=== PATIENT | male | born 1945 | race Caucasian/White ===

== ENCOUNTER 2017-03-17 14:22 | Emergency (ER) | payer OTHER, MEDICARE ==
[~2017-03-17] VITALS: Ht 165.1 cm; Wt 72.0 kg
[~2017-03-17 14:22] MED LIST: ASPI81 PO; CENTTAB9 PO; COZA50TA PO; FISH1200 PO; METO50TA PO; MOBI7.5T PO; MULT1TAB PO; POTA-243 PO; SIMV20 PO; TAMS0.4C67 PO; TRAM50TA PO; VITA100017 PO
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
[2017-03-17 14:35] VITALS: BP 135/87; PULSE 87; RESP 17; TEMP 98.2; O2SAT 98
[2017-03-17 15:26] VITALS: BP 135/79; PULSE 54; RESP 16; O2SAT 95
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
[2017-03-17] MEDS ORDERED: SODIUM CHLORIDE 0.9% FLUSH 10 ML FLUSH IV FLUSH PRN (16:30)
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
[2017-03-17 17:15] LABS: AUTOMATED NEUTROPHIL # 5.8 TH/MM3 (1.8-7.7); BASOPHIL % 0.5 % (0.0-2.0); EOSINOPHIL % 0.5 % (0.0-4.0); HEMATOCRIT 44.6 % (39.0-51.0); HEMO FLAGS DIFF FINAL; LYMPHOCYTE # 0.8 TH/MM3 (1.0-4.8); MEAN CELL VOLUME 73.7 FL (80.0-100.0); MEAN CORPUSCULAR HEMOGLOBIN 23.9 PG (27.0-34.0); MEAN CORPUSCULAR HGB CONC 32.4 % (32.0-36.0); PLATELET COUNT 190 TH/MM3 (150-450); RED BLOOD COUNT 6.05 MIL/MM3 (4.50-5.90); RED CELL DISTRIBUTION WIDTH 18.5 % (11.6-17.2); WHITE BLOOD COUNT 7.4 TH/MM3 (4.0-11.0)
[2017-03-17 17:22] LABS: APTT (PATIENT) 25.8 SEC (24.3-30.1); PROTHROMBIN TIME - PATIENT 11.5 SEC (9.8-11.6)
[2017-03-17 17:31] LABS: ALT (GPT) 30 U/L (12-78); ANION GAP 7 MEQ/L (5-15); AST (GOT) 39 U/L (15-37); BICARBONATE 25.7 MEQ/L (21.0-32.0); BLOOD UREA NITROGEN 15 MG/DL (7-18); CHLORIDE 109 MEQ/L (98-107); GLOMERULAR FILTRATION RATE 60 ML/MIN (>89); POTASSIUM 3.7 MEQ/L (3.5-5.1); SODIUM (NA) 142 MEQ/L (136-145)
[2017-03-17 17:34] LABS: ALKALINE PHOSPHATASE 71 U/L (45-117); TOTAL BILIRUBIN ADULT 0.2 MG/DL (0.2-1.0)
[2017-03-17] MEDS ORDERED: ASPI81TA11 PO (17:59)
[2017-03-17] MEDS ORDERED: LOSA50TA PO (17:59)
[2017-03-17] MEDS ORDERED: FISH1200 PO (17:59)
[2017-03-17] MEDS ORDERED: MOBI7.5T PO (17:59)
[2017-03-17] MEDS ORDERED: ASPI325T PO (17:59)
[2017-03-17] MEDS ORDERED: ZOCO20TA PO (18:01)
[2017-03-17] MEDS ORDERED: MULT1TAB PO (18:01)
[2017-03-17] MEDS ORDERED: TAMS0.4C4 PO (18:01)
[2017-03-17] MEDS ORDERED: METO50TA PO (18:02)
[2017-03-17] MEDS ORDERED: POTA-243 PO (18:02)
[2017-03-17 18:56] VITALS: PULSE 78
[2017-03-17 19:03] VITALS: BP 138/70; PULSE 65; RESP 18; O2SAT 100
[2017-03-17 22:09] VITALS: BP 137/80; PULSE 57; RESP 18; O2SAT 100
--- NOTE | 2017-03-17 22:15 | RADRPT ---
EXAM DATE/TIME: 03/17/2017 21:05 [facility] COMPARISON: No previous studies available for comparison. INDICATIONS : Radiculopathy. Right lower extremity numbness and weakness. MEDICAL HISTORY: Hypertension. Myocardial infarction. Gastroesophageal reflux disease. Polycythe uri vera. BPH. SURGICAL HISTORY : Tonsillectomy. Hernia repair. Cardiac cath. ENCOUNTER: Subsequent ACUITY: 1 day PAIN SCORE: 3/10 LOCATION: Lower back. TECHNIQUE: Multiplanar multisequence MRI of the lumbar spine was performed without contrast. FINDINGS: The most caudal appearing lumbar vertebra is numbered as L5. VERTEBRAE: The lumbar vertebral bodies are grossly normal in height. There is a mixture of type I and type II endplate changes at the L1-L2, L2-L3, L3-L4, and L5-S1 levels. There are prominent ante rior osteophytes in the lower thoracic and upper and midlumbar spine. There does appear to be a dext rocurvature of the upper lumbar spine and a levocurvature of the lower lumbar spine. There is mild a nterior subluxation of L4 on L5 in the order of 5 mm. There is some minimal posterior subluxation of L2 on L3 and L3 on L4. CONUS: Normal level and configuration. T12-L1: Disc demonstrates decreased signal. A significant impression on the thecal sac is not seen. The neural foramina are normal. There is mild facet hypertrophy. L1-L2: Disc space is narrowed. There is diffuse disc bulge. This causes a mild impression on the a nterior aspect of the thecal sac. There is mild facet hypertrophy. The disc and facet changes are a symmetric and worse on the left. There is some narrowing of the left neural foramina. The right neur al foramina appears intact. L2-L3: Disc demonstrates decreased signal and decreased height. There is mild diffuse disc bulge. There is moderate facet hypertrophy. There is moderate narrowing of the thecal sac with minimal CSF seen around the nerve roots. There is narrowing of the neural foramina bilaterally. L3-L4: Disc demonstrates decreased signal and decreased height. There is mild diffuse disc bulge. There is moderate facet hypertrophy. These changes lead to moderate narrowing of the thecal sac with little CSF seen around the nerve roots. There is narrowing of the neural foramina bilaterally. L4-L5: Again noted is the anterior subluxation of L4 on L5, this is likely secondary to severe facet hypertrophy. Pars defects are not seen. The disc maintains its alignment with the superior aspect of L5 creating a bulge-like configuration. The disc configuration and facet hypertrophy lead to very severe stenosis. The thecal sac is narrowed to approximately 5 mm in AP dimension and 6 mm in transv erse dimension. There is narrowing of the neural foramina bilaterally being worse on the right. The disc bulge appears worse on the right. L5-S1: Disc demonstrates decreased signal and decreased height. There is mild diffuse disc bulge. T here is moderate facet hypertrophy being worse on the right. Overall these changes cause a mild impr ession on the thecal sac. There continues to be CSF around the nerve roots. There is narrowing of th e neural foramina bilaterally. CONCLUSION: 1. Degenerative changes throughout the lumbar spine. The most severely affected level is the L4-L5 l evel where there is severe stenosis. This is caused by anterior subluxation/Grade I spondylolisthesi s of L4 on L5, disc bulge configuration and severe facet hypertrophy. 2. Disc space narrowing and bulging throughout the lumbar spine. There is severe stenosis at the L4- L5 level and moderate narrowing at the L1-L2, L2-L3, and L3-L4 levels. 3. Neural foraminal narrowing throughout the lumbar spine as described above. Jaydon Kahn MD on March 17, 2017 at 21:50 Board Certified Radiologist. This report was verified electronically.
[2017-03-17] MEDS ORDERED: PRED20 PO (23:00)
[2017-03-17] MEDS ORDERED: predniSONE 20 MG TAB PO ONE (23:00)
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
== END 2017-03-17 23:21 | disposition home or self-care (01) ==
LOC: NEPC 14:22
DX: M54.16 Radiculopathy, lumbar region (principal); I10 Essential (primary) hypertension; I25.2 Old myocardial infarction; E11.9 Type 2 diabetes mellitus without complications; E78.00 Pure hypercholesterolemia, unspecified; Z79.82 Long term (current) use of aspirin; M51.36 Other intervertebral disc degeneration, lumbar region
CPT/HCPCS: 71010; 72148; 80053; 80307; 85025; 85610; 85730; 99285; J7512

== ENCOUNTER 2017-06-02 08:30 | Inpatient (IN) | payer MEDICARE ==
[~2017-06-02] VITALS: Ht 167.6 cm; Wt 66.5 kg
[~2017-06-02 08:30] MED LIST changes: -ASPI81 PO; +ASPI81CH CHEW; +ASPI81TA11 PO; -CENTTAB9 PO; -COZA50TA PO; +LOSA50TA PO; +METR0.7533 TOPICAL; +MIRA3350 PO; +MOME0.1O20 TOPICAL; +PRED20 PO; -SIMV20 PO; +TAMS0.4C4 PO; -TAMS0.4C67 PO; -TRAM50TA PO; -VITA100017 PO; +ZOCO20TA PO
[2017-06-15] MEDS ORDERED: METOPROLOL TARTRATE 25 MG TAB PO PRN (06:15)
[2017-06-15] MEDS ORDERED: INSULIN HUMAN REGULAR 1,000 UNITS/10 ML VIAL SQ PRN (06:15)
[2017-06-15] MEDS ORDERED: CHLORHEXIDINE GLUCONATE 2 % 1 PACK (2 CLOTHS) TOPICAL PRN (06:15)
[2017-06-15] MEDS ORDERED: SODIUM CHLORID 0.9% 500 ML IV PRN (06:15)
[2017-06-15] MEDS ORDERED: LACTATED RINGER'S 1000 ML IV PRN (06:15)
[2017-06-15] MEDS ORDERED: SODIUM CHLORIDE 0.9% INJ 100 ML ONE (06:36)
[2017-06-15] MEDS ORDERED: CLINDAMYCIN INJ 600 MG in SODIUM CHLORIDE 0.9% INJ 100 ML IV SCH (07:30)
[2017-06-15] MEDS ORDERED: GELFOAM SIZE 100 ONE (07:46)
[2017-06-15] MEDS ORDERED: THROMBIN (TOPICAL) 5,000 UNIT VIAL ONE (07:46)
[2017-06-15] MEDS ORDERED: GENTAMICIN SULFATE 80 MG/2 ML VIAL ONE (07:46)
[2017-06-15] MEDS ORDERED: LIDOCAINE 2%/EPINEPHrine PF 1:200,000 20ML SDV ONE (07:50)
[2017-06-15] MEDS ORDERED: ONDANSETRON HCL 4 MG/2 ML VIAL IV PUSH ONE (12:00)
[2017-06-15] MEDS ORDERED: PROPOFOL 200 MG/20 ML AMP IV ONE (12:00)
[2017-06-15] MEDS ORDERED: LIDOCAINE HCL 1% PF 5 ML AMPULE OTHER ONE (12:00)
[2017-06-15] MEDS ORDERED: PHENYLEPH/NS 1000 MCG/10 ML SYR IV ONE (12:00)
[2017-06-15] MEDS ORDERED: DEXAMETHASONE SOD PHOS 4 MG/ML VIAL IV ONE (12:00)
[2017-06-15] MEDS ORDERED: PHENYLEPHRINE HCL 10 MG/ML VIAL IV ONE (12:00)
[2017-06-15] MEDS ORDERED: ePHEDrine/NS 25 MG/5 ML SYR IV ONE (12:00)
[2017-06-15] MEDS ORDERED: ROCURONIUM INJ 50 MG/5 ML SYRINGE IV PUSH ONE (12:00)
[2017-06-15] MEDS ORDERED: LACTATED RINGER'S 1000 ML INJ 1,000 ML IV ONE (12:00)
[2017-06-15] MEDS ORDERED: DO NOT ADM ANY ANTICOAGULANT DRUGS PRN (13:08)
[2017-06-15] MEDS ORDERED: MORPHINE SULFATE 4 MG/ML INJ IV PUSH PRN (13:30)
[2017-06-15] MEDS ORDERED: NALOXONE HCL 0.4 MG/ML AMP IV PUSH PRN (13:30)
[2017-06-15] MEDS ORDERED: ACETAMINOPHEN/HYDROcodone 325 MG/5 MG TAB PO PRN (13:30)
[2017-06-15] MEDS ORDERED: HYDROmorphone HCL PF 1 MG/ML VIAL IV PUSH PRN (13:30)
[2017-06-15] MEDS ORDERED: ACETAMINOPHEN/HYDROcodone 325 MG/10 MG TAB PO PRN (13:30)
[2017-06-15] MEDS ORDERED: SODIUM CHLORIDE 0.9% FLUSH 5 ML FLUSH IVF PRN (13:30)
--- NOTE | 2017-06-15 13:48 | PD.OP ---
Operative Report Date of Surgery: Jun 15, 2017 Preoperative Diagnosis: (1) Cervical spinal stenosis (2) Cervical disc disease with myelopathy 1. Cervical spondylosis and degenerative disc disease 2. Cervical stenosis 3. Cervical myelopathy Postoperative Diagnosis: (1) Cervical spinal stenosis (2) Cervical disc disease with myelopathy 1. Cervical spondylosis and degenerative disc disease 2. Cervical stenosis 3. Cervical myelopathy Procedure: 1. C3, C4, C5, C6 laminoplasty, allograft bone, demineralized bone matrix, titanium plates and screws 2. Inferior C2 and superior C7 decompressive semi-laminectomy Anesthesia: Gen. Surgeon: Chiki Barker [id number] Application Developer(s): Aj Simon Operation and Findings: The patient was brought into the operating room and general endotracheal anesthesia induced without difficulty. Lines were established by anesthesia Knee high sequential compression devices were placed Appropriate timeout procedure was performed with all personnel present and in agreement The Fagan 3 point fixation device was placed. The patient was in a cervical collar for positioning Leads for intraoperative neuro monitoring were placed in a baseline study obtained The patient was turned into prone position on the 3080 table on the Vinicius frame with the undersigned maintaining control of the head and neck. The head and neck were secured to the operating room table with the Fagan adapter with the neck slightly flexed with 3-4 fingerbreadths between the chin and chest. The neck position was checked with intraoperative C-arm and felt to be satisfactory. The cervical collar was removed. All extremities were appropriately padded. The back of the head and neck were shaved with clippers and sterilely prepped and draped. 1% Xylocaine with epinephrine was used for local infiltration over the incision site was made in the midline posterior neck and carried sharply down to the spinous processes of . The microscope was used as needed during the decompression and graft and plate placement portion of the procedure. On the right side, the muscle attachments to the spinous process and the midline supraspinous ligament was left intact, and the Cash elevator was used to expose the junction of the lamina and facet at the bilateral C3-C6 levels. On the right side, the TPS drill with the M8 mercedez was used to incise a trough in the dorsal cortical bone at the C3-C6 levels. On the left side the posterior muscle attachments and fascia were incised with the Bovie and elevated away from the lamina and facet and spinous processes at the C3-C6 levels On the left side. The TPS drill with the M8 mercedez was used to drill a 10 trough through both the dorsal and ventral cortical bone at the junction of the lamina and facet. A thin remaining shell of bone at the ventral lamina was removed with the 1 and 2 mm Kerrison rongeur. The lamina square dance caller was then used to elevate the left lamina away from the facet , creating a partial fracture through the lamina on the right side. Next the precut laminoplasty grafts filled with demineralized bone matrix were placed at the C3 through C6 levels with the 10 mm grafts used at each level. Prior to placement of the laminoplasty graft and plate, the inferior ventral C2 and superior ventral C6 lamina were removed with the TPS drill and the Kerrison rongeur to further decompress the dura at these levels. The prepared iliac autografts were then placed between the elevated laminar edge and decorticated facet at the left C3-C6 levels, with the Synthes titanium laminoplasty plates pre- attached to the graft with 6 mm screws. The 4 through 6 mm screws were then used as needed to secure the laminoplasty plates to the edge of the lamina and through the facet and lateral mass at the left C3-C6 levels. The entire construct was checked with intraoperative C-arm and also visualized under the microscope. The thin ligament dissector and blunt hook were used to carefully probe beneath the elevated lamina to ensure adequate decompression of the thecal sac. Care was taken to make sure that the edge of the lamina on the right side was not depressed into the spinal canal. There appeared to be some dorsal compression of the thecal sac remaining at the inferior C2 and superior C7 levels. Using the TPS drill with the M8 mercedez, the inferior C2 and superior C7 lamina was thinned out, with the remaining decompressive semi-laminectomy at these levels performed with the 2 and 3 mm Kerrison rongeur. After this maneuver, the thecal sac appeared to be well decompressed from the C2 through C7 levels. The region was well irrigated with antibiotic irrigation. Bleeding was carefully controlled with bipolar forceps A 10 Syrian fluted drain was left at the operative site and brought out through an incision in the upper thoracic region and secured to the skin with nylon suture The closure was performed with 0 Vicryl interrupted for the deep and superficial fascia with 3-0 Vicryl interrupted subcutaneous closure and 4-0 Vicryl subcutaneous closure. A dressing of sterile Mastisol and Steri-Strips and a Primapore dressing was placed. The patient was placed back in a cervical collar and released from the Milton adapter and turned back into supine position on the recovery room bed. The Milton 3 point fixation device was then removed. The patient was taken to recovery room in stable condition All counts were correct at the end of the case. Estimated blood loss was 200 No specimen was sent to pathology Neural monitoring remained stable during the procedure Chiki Barker MD Jun 15, 2017 13:48
[2017-06-15] MEDS: D5-1/2 NS + KCL 20 MEQ INJ 1,000 ML IV SCH (14:00)
[2017-06-15 16:47] VITALS: BP 117/58; PULSE 58; RESP 20; TEMP 97.6; O2SAT 98
[2017-06-15 20:00] VITALS: BP 116/66; PULSE 66; RESP 18; TEMP 97.8; O2SAT 98
[2017-06-15] MEDS: SODIUM CHLORIDE 0.9% FLUSH 5 ML FLUSH IVF SCH (21:00)
--- NOTE | 2017-06-15 21:41 | RADRPT ---
EXAM DATE/TIME: 06/15/2017 10:01 [facility] COMPARISON: No previous studies available for comparison. INDICATIONS : Cervical spine C3-6 laminoplasty with plates and screws. OR. MEDICAL HISTORY : Hypertension. Myocardial infarction. Gastroesophageal reflux disease. Polycythemia vera. BPH. SURGICAL HISTORY : Tonsillectomy. Hernia repair. Cardiac cath. ENCOUNTER: Initial ACUITY: 1 day PAIN SCORE: Non-responsive. LOCATION: Cervical spine C3-6 FINDINGS: 3 spot fluoroscopic images obtained in the operating room during a procedure demonstrates plate and s crews on the left in the lamina region at C3-C6. CONCLUSION: Spot fluoroscopic images, as above. Jaydon Cline MD on June 15, 2017 at 21:38 Board Certified Radiologist. This report was verified electronically.
[2017-06-16] VITALS (9 sets, daily range): BP systolic 127–141; BP diastolic 63–79; PULSE 57–72; RESP 17–18; TEMP 97.4–99.3; O2SAT 95–100
[2017-06-16 09:01] LABS: AUTOMATED NEUTROPHIL # 5.6 TH/MM3 (1.8-7.7); BASOPHIL % 0.1 % (0.0-2.0); EOSINOPHIL % 0.2 % (0.0-4.0); HEMATOCRIT 40.8 % (39.0-51.0); HEMO FLAGS DIFF FINAL; LYMPH % 9.8 % (9.0-44.0); LYMPHOCYTE # 0.7 TH/MM3 (1.0-4.8); MEAN CELL VOLUME 78.4 FL (80.0-100.0); MEAN CORPUSCULAR HEMOGLOBIN 25.6 PG (27.0-34.0); MEAN CORPUSCULAR HGB CONC 32.6 % (32.0-36.0); NEUT % 77.9 % (16.0-70.0); PLATELET COUNT 165 TH/MM3 (150-450); RED BLOOD COUNT 5.21 MIL/MM3 (4.50-5.90); RED CELL DISTRIBUTION WIDTH 17.7 % (11.6-17.2); WHITE BLOOD COUNT 7.2 TH/MM3 (4.0-11.0)
--- NOTE | 2017-06-16 09:09 | RADRPT ---
EXAM DATE/TIME: 06/16/2017 08:30 [facility] COMPARISON: No previous studies available for comparison. INDICATIONS : Gait deficits. Evaluate for normal pressure hydrocephalus. Cervical fusion surgery yesterday. RADIATION DOSE: 56.39 CTDIvol (mGy) MEDICAL HISTORY : Cardiovascular disease. Hypertension. SURGICAL HISTORY : Fusion, cervical. Hernia repair. ENCOUNTER: Initial ACUITY: 1 day PAIN SCALE: 0/10 LOCATION: cranial TECHNIQUE: Multiple contiguous axial images were obtained of the head. Using automated exposure control and adj ustment of the mA and/or kV according to patient size, radiation dose was kept as low as reasonably a chievable to obtain optimal diagnostic quality images. DICOM format image data is available electro nically for review and comparison. FINDINGS: There are no fractures. Ventricles and cisterns are of normal size and configuration. There are no si gns of acute infarct, intracranial hemorrhage, or mass. CONCLUSION: No acute disease. Samson Tavarez MD on June 16, 2017 at 9:07 Board Certified Radiologist. This report was verified electronically.
[2017-06-16] MEDS: D5-1/2 NS + KCL 20 MEQ INJ 1,000 ML IV SCH (09:25)
[2017-06-16] MEDS: SODIUM CHLORIDE 0.9% FLUSH 5 ML FLUSH IVF SCH ×2 (09:25→21:00)
[2017-06-16 09:37] LABS: BICARBONATE 26.2 MEQ/L (21.0-32.0); POTASSIUM 4.3 MEQ/L (3.5-5.1)
--- NOTE | 2017-06-16 10:45 | PD.WCN.NOT ---
Wound Consult Description: Received consult for pressure ulcer to sacral area from Doctor Barker Communicated with: RN Kathryn sanabria and Call placed to Doctor Barker for orders Recommendation: Please cleanse buttock and sacral area with soap and water and pat dry. Apply Calazime barrier cream BID and PRN and leave open to air. Ok to not remove all barrier cream from skin after cleaning patient. Please do not scrub barrier cream off skin OK to layer barrier cream on patient. Cleanse Hemorrhoid with normal saline gently and pat dry. Please use mesh underwear with pad for drainage and change as needed. Please keep patient turned every 2 hours and PRN for comfort Additional Information: Patient seen on for evaluation of sacral pressure ulcer.Repositioned patient with minimal assist to L side. Patient is noted with sacral blanchable erythema and large hemorrhoid to perianal area. Hemorrhoid measures ~5cm x ~ 4cm. Hemorrhoid has minimal sero-sanguinous drainage without odor.Cleansed hemorrhoid with normal saline and left open to air. Placed ultra sorb pad underneath patient for incontinence and drainage management. Moisture barrier cream applied to sacral and bilateral buttock areas.Positioned patient off bottom with pillows for support. Angela Dooley [facility] Jun 16, 2017 10:45
--- NOTE | 2017-06-16 17:42 | HHI.NSPN ---
(Merrill Godfrey) History Chief Complaint: Neck pain (Merrill Godfrey) Interval History 06/15: The patient presented to [facility] to undergo a C3 to C6 laminoplasty with a C2 and C7 decompressive laminectomy. Post-operatively the patient was admitted to a regular med/surg floor. 06/16: The patient states that he is not doing so good when seen this afternoon. He complains of pain to the neck and back and across the upper shoulders. He states that he did have some shortness of breath when he got up and ambulate with Physical Therapy. Nursing reported that the patient did have some drainage earlier at the ELIJAH drain insertion site and that they have just reinforced the dressing. His Cedillo catheter has been taken out and he is voiding on his own but he does report pain with urination. The patient did have a CT brain this morning which was unremarkable. (Merrill Godfrey) System Review Comments Constitutional: Patient denies fever or chills. HEENT: Patient denies any visual or hearing difficulty. Respiratory: Patient had shortness of breath when ambulating with Physical Therapy which subsided when he got back in bed. He denies any productive cough. Cardiovascular: Patient denies any chest pain, palpitations or irregular heartbeat. Gastrointestinal: Patient denies any abdominal pain, nausea, vomiting or incontinence of stool. Genitourinary: Patient complains of pain with urination. Musculoskeletal: Patient complains of neck and upper back pain that goes across the shoulders. He also has pain to the lower back. Neurologic: Patient with chronic numbness from the ankles to the toes bilaterally without any change. He denies any headache or dizziness. (Merrill Godfrey) Exam Results 06/14/17 06/14/17 06/15/17 06/15/17 06/16/17 06/16/17 06:00 18:00 06:00 18:00 06:00 18:00 Intake Total 1574 ml 1170 ml Output Total 760 ml 545 ml 650 ml Balance 814 ml -545 ml 520 ml Intake Oral 0 ml 240 ml IV Total 174 ml 930 ml Other 1400 ml Output Urine Total 550 ml 500 ml 650 ml Drainage Total 10 ml 45 ml Estimated Blood Loss 200 ml Vital Signs Date Time Temp Pulse Resp B/P (MAP) Pulse Ox O2 Delivery O2 Flow Rate FiO2 06/16/17 15:57 98.8 72 18 129/66 (87) 95 06/16/17 12:12 98.4 70 18 135/63 (87) 98 06/16/17 09:20 Nasal Cannula 2.00 06/16/17 08:55 98 Nasal Cannula 2.00 06/16/17 08:22 98.1 68 18 137/67 (90) 99 06/16/17 04:00 98.1 63 18 141/79 (99) 99 06/16/17 03:07 100 Nasal Cannula 2.00 06/16/17 00:00 97.4 66 18 132/67 (88) 98 06/15/17 20:00 97.8 66 18 116/66 (83) 98 06/15/17 16:47 97.6 58 20 117/58 (77) 98 06/15/17 15:05 Nasal Cannula 2.00 06/15/17 14:45 98.1 60 13 110/63 (79) 98 Nasal Cannula 3 06/15/17 14:30 55 12 107/61 (76) 98 Nasal Cannula 3 06/15/17 14:15 59 16 103/64 (77) 98 Nasal Cannula 3 06/15/17 14:00 57 12 107/62 (77) 99 Nasal Cannula 3 06/15/17 13:45 57 12 110/62 (78) 99 Nasal Cannula 3 06/15/17 13:30 58 12 112/63 (79) 99 Nasal Cannula 3 06/15/17 13:15 55 12 114/63 (80) 100 Simple Mask 5 06/15/17 13:05 98.2 57 12 108/60 (76) 100 Simple Mask 5 06/15/17 06:47 98.1 53 16 127/80 (96) 97 Vital Signs Date Time Temp Pulse Resp B/P (MAP) Pulse Ox O2 Delivery O2 Flow Rate FiO2 06/16/17 15:57 98.8 72 18 129/66 (87) 95 06/16/17 09:20 Nasal Cannula 2.00 Intake and Output 06/16/17 06/16/17 06/17/17 08:00 16:00 00:00 Intake Total 1170 ml Output Total 600 ml 550 ml Balance -600 ml 620 ml (Merrill Godfrey) Physical Examination GENERAL: Asleep but awakens to voice, after that awake and readily interacts. No distress evident. His affect is normal. SKIN: Warm, dry & intact except for surgical incisions to neck & upper back, dressings intact w/o any shadowing noted, w/o any erythema or streaking, w/o any evident rashes, ulcerations or other lesions. NECK: [place] J cervical collar in place, intact dressing to surgical incision TTP , ELIJAH drain to bulb suction w/sanguinous drainage, no JVD, trachea midline. HEENT: Normocephalic, atraumatic. RESPIRATORY: CTAB w/o W/R/R, equal excursion, nonlaboured, on NC. CARDIOVASCULAR: S1S2 w/RRR w/o M/G/R, radial & pedal pulses 2+ bilaterally, cap refill < 2 sec, no pedal edema. GASTROINTESTINAL: Abdomen soft, nontender, positive bowel sounds. MUSCULOSKELETAL: SAVAGE spontaneously, no evident deformity or clubbing. Surgical incisions to upper back TTP and across proximal shoulders. Lower back TTP. Extremities NTTP NEUROLOGICAL: AAOx3. Speech clear & appropriate. Follows simple commands well. Sensation intact to light touch to all extremities except decreased below the ankles bilaterally. Motor strength 5/5 to all major flexion & extension muscle groups. (Merrill Godfrey) Lab, Micro, Other Results Recent Impressions Head CT 06/16/17 0600 Signed Impressions: Service Date/Time: Friday, June 16, 2017 08:30 - CONCLUSION: No acute disease. Samson Tavarez MD Cervical Spine X-Ray 06/15/17 0000 Signed Impressions: Service Date/Time: Thursday, June 15, 2017 10:01 - CONCLUSION: Spot fluoroscopic images, as above. Jaydon Cline MD Laboratory Tests Test 06/16/17 08:23 White Blood Count 7.2 TH/MM3 Red Blood Count 5.21 MIL/MM3 Hemoglobin 13.3 GM/DL Hematocrit 40.8 % Mean Corpuscular Volume 78.4 FL Mean Corpuscular Hemoglobin 25.6 PG Mean Corpuscular Hemoglobin Concent 32.6 % Red Cell Distribution Width 17.7 % Platelet Count 165 TH/MM3 Mean Platelet Volume 8.4 FL Neutrophils (%) (Auto) 77.9 % Lymphocytes (%) (Auto) 9.8 % Monocytes (%) (Auto) 12.0 % Eosinophils (%) (Auto) 0.2 % Basophils (%) (Auto) 0.1 % Neutrophils # (Auto) 5.6 TH/MM3 Lymphocytes # (Auto) 0.7 TH/MM3 Monocytes # (Auto) 0.9 TH/MM3 Eosinophils # (Auto) 0.0 TH/MM3 Basophils # (Auto) 0.0 TH/MM3 CBC Comment DIFF FINAL Differential Comment Blood Urea Nitrogen 12 MG/DL Creatinine 1.14 MG/DL Random Glucose 107 MG/DL Calcium Level 8.5 MG/DL Sodium Level 138 MEQ/L Potassium Level 4.3 MEQ/L Chloride Level 105 MEQ/L Carbon Dioxide Level 26.2 MEQ/L Anion Gap 7 MEQ/L Estimat Glomerular Filtration Rate 63 ML/MIN (Merrill Godfrey) Medical Decision Making Impression and Plan Impression: (1) Cervical spinal stenosis (2) Cervical disc disease with myelopathy 1. Cervical spondylosis and degenerative disc disease 2. Cervical stenosis 3. Cervical myelopathy Patient doing well overall but does have pain across the shoulders since surgery. Motor strength is good, no change in numbness to feet. POD #1 () s/p: 1. C3, C4, C5, C6 laminoplasty, allograft bone, demineralized bone matrix, titanium plates and screws 2. Inferior C2 and superior C7 decompressive semi-laminectomy Plan: Neuro checks. Mobilise patient w/assistance. [place] J cervical collar at all times. PT eval & tx. Monitor ELIJAH drain output. (Merrill Godfrey) Attending Statement The exam, history, and the medical decision-making described in the above note were completed with the assistance of the mid-level provider. I reviewed and agree with the findings presented. I attest that I had a [id number] encounter with the patient on the same day, and personally performed and documented my assessment and findings in the medical record. Post op pain over neck and shoulders. Neuro exam stable post op. Add toradol and robaxin for pain and spasm Drain out in AM (Chiki Barker MD) Merrill Godfrey Jun 16, 2017 17:42 Chiki Barker MD Jun 16, 2017 21:41
[2017-06-16] MEDS ORDERED: METHOCARBAMOL 500 MG TAB PO PRN (21:45)
[2017-06-16] MEDS ORDERED: METHOCARBAMOL 500 MG TAB PO ONE (21:45)
[2017-06-16] MEDS: KETOROLAC TROMETHAMINE 30 MG/ML (IVP) VIAL IV PUSH SCH (22:43)
[2017-06-16 22:48] LABS: BLOOD, URINE SMALL (NEG); COMMENT (UR) CULT NOT INDICATED; CULTURE IF INDICATED CULT NOT INDICATED; GLUCOSE,URINE NEG (NEG); KETONE, URINE TRACE mg/dL (NEG); NITRITE,URINE NEG (NEG); PH, URINE 5.5 (5.0-8.5); URINE COLOR LIGHT-YELLOW (YELLW/STRAW)
[2017-06-17] VITALS (7 sets, daily range): BP systolic 122–141; BP diastolic 60–79; PULSE 60–82; RESP 17–20; TEMP 98–99.6; O2SAT 93–97
[2017-06-17] MEDS: TAMSULOSIN HCL 0.4 MG CAP PO SCH ×2 (00:46→22:07)
[2017-06-17] MEDS: D5-1/2 NS + KCL 20 MEQ INJ 1,000 ML IV SCH ×3 (00:46→14:57)
[2017-06-17] MEDS: KETOROLAC TROMETHAMINE 30 MG/ML (IVP) VIAL IV PUSH SCH ×3 (06:17→22:09)
[2017-06-17] MEDS: LOSARTAN 50 MG TAB PO SCH ×2 (08:18→22:07)
[2017-06-17] MEDS: METOPROLOL TARTRATE 50 MG TAB PO SCH ×2 (08:18→22:07)
[2017-06-17] MEDS: POTASSIUM CHLORIDE 10 MEQ CONTROLLED RELEASE TAB PO SCH (08:18)
[2017-06-17] MEDS: SODIUM CHLORIDE 0.9% FLUSH 5 ML FLUSH IVF SCH ×2 (08:22→21:00)
[2017-06-17] MEDS: POLYETHYLENE GLYCOL 17 GM PKG PO SCH (08:22)
--- NOTE | 2017-06-17 11:51 | HHI.NSPN ---
(Merrill Godfrey) History Chief Complaint: Neck pain, but better (Merrill Godfrey) Interval History 06/15: The patient presented to [facility] to undergo a C3 to C6 laminoplasty with a C2 and C7 decompressive laminectomy. Post-operatively the patient was admitted to a regular med/surg floor. 06/16: The patient states that he is not doing so good when seen this afternoon. He complains of pain to the neck and back and across the upper shoulders. He states that he did have some shortness of breath when he got up and ambulate with Physical Therapy. Nursing reported that the patient did have some drainage earlier at the ELIJAH drain insertion site and that they have just reinforced the dressing. His Cedillo catheter has been taken out and he is voiding on his own but he does report pain with urination. The patient did have a CT brain this morning which was unremarkable. 06/17: This morning the patient is awake and visiting with his . He states that he is doing better than yesterday and is pain is less. He also states that his difficulty urinating yesterday has resolved with his being able to stand. Lisa Simental RN, [place] buyer liaison, met with the patient this morning. She is going to request authorisation for the patient to go to [place] at discharge for further therapy and requested that an Occupational Therapy consult be placed. (Merrill Godfrey) System Review Comments Constitutional: Patient denies fever or chills. HEENT: Patient denies any visual or hearing difficulty. Respiratory: Patient denies any shortness of breath or productive cough. Cardiovascular: Patient denies any chest pain, palpitations or irregular heartbeat. Gastrointestinal: Patient denies any abdominal pain, nausea, vomiting or incontinence of stool. Genitourinary: Patient states that he is urinating better when he stands up. Musculoskeletal: Patient has pain to the neck and upper back which is better today. He also has pain to the lower back. He denies any extremity pain. Neurologic: Patient with chronic numbness from the ankles to the toes bilaterally without any change. He denies any headache or dizziness. (Merrill Godfrey) Exam Results 06/15/17 06/15/17 06/16/17 06/16/17 06/17/17 06/17/17 05:59 17:59 05:59 17:59 05:59 17:59 Intake Total 1574 ml 1545 ml 1058 ml Output Total 760 ml 545 ml 950 ml 515 ml 5 ml Balance 814 ml -545 ml 595 ml 543 ml -5 ml Intake Oral 0 ml 240 ml 480 ml IV Total 174 ml 1305 ml 578 ml Other 1400 ml Output Urine Total 550 ml 500 ml 950 ml 450 ml Drainage Total 10 ml 45 ml 65 ml 5 ml Estimated Blood Loss 200 ml Bladder Scan Volume Amount 0 ml 622 ml # Voids 2 Vital Signs Date Time Temp Pulse Resp B/P (MAP) Pulse Ox O2 Delivery O2 Flow Rate FiO2 06/17/17 08:18 98.0 71 18 122/75 (91) 96 06/17/17 08:02 93 21 06/17/17 08:00 Nasal Cannula 2.00 06/17/17 05:30 98.1 69 17 128/74 (92) 94 06/17/17 00:46 99.6 72 17 133/79 (97) 96 06/16/17 21:27 95 Nasal Cannula 2.00 06/16/17 21:18 99.3 57 17 127/74 (91) 95 06/16/17 19:55 Nasal Cannula 2.00 06/16/17 15:57 98.8 72 18 129/66 (87) 95 06/16/17 12:12 98.4 70 18 135/63 (87) 98 06/16/17 09:20 Nasal Cannula 2.00 06/16/17 08:55 98 Nasal Cannula 2.00 06/16/17 08:22 98.1 68 18 137/67 (90) 99 06/16/17 04:00 98.1 63 18 141/79 (99) 99 06/16/17 03:07 100 Nasal Cannula 2.00 06/16/17 00:00 97.4 66 18 132/67 (88) 98 06/15/17 20:00 97.8 66 18 116/66 (83) 98 06/15/17 16:47 97.6 58 20 117/58 (77) 98 06/15/17 15:05 Nasal Cannula 2.00 06/15/17 14:45 98.1 60 13 110/63 (79) 98 Nasal Cannula 3 06/15/17 14:30 55 12 107/61 (76) 98 Nasal Cannula 3 06/15/17 14:15 59 16 103/64 (77) 98 Nasal Cannula 3 06/15/17 14:00 57 12 107/62 (77) 99 Nasal Cannula 3 06/15/17 13:45 57 12 110/62 (78) 99 Nasal Cannula 3 06/15/17 13:30 58 12 112/63 (79) 99 Nasal Cannula 3 06/15/17 13:15 55 12 114/63 (80) 100 Simple Mask 5 06/15/17 13:05 98.2 57 12 108/60 (76) 100 Simple Mask 5 06/15/17 06:47 98.1 53 16 127/80 (96) 97 (Merrill Godfrey) Physical Examination GENERAL: Awake & alert. Readily interacts. No distress evident. His affect is normal. SKIN: Warm, dry & intact except for surgical incisions to neck & upper back, dressings intact w/o any shadowing noted, w/o any erythema or streaking, w/o any evident rashes, ulcerations or other lesions. NECK: [place] J cervical collar in place, intact dressing to surgical incision TTP , ELIJAH drain to bulb suction w/sanguinous drainage, no JVD, trachea midline. HEENT: Normocephalic, atraumatic. RESPIRATORY: CTAB w/o W/R/R, equal excursion, nonlaboured, on NC. CARDIOVASCULAR: S1S2 w/RRR w/o M/G/R, radial & pedal pulses 2+ bilaterally, cap refill < 2 sec, no pedal edema. GASTROINTESTINAL: Abdomen soft, nontender, positive bowel sounds. MUSCULOSKELETAL: SAVAGE spontaneously, no evident deformity or clubbing. Surgical incisions to upper back mildly TTP. Lower back mildly TTP. Extremities NTTP NEUROLOGICAL: AAOx3. Speech clear & appropriate. Follows simple commands well. Sensation intact to light touch to all extremities except decreased below the ankles bilaterally. Motor strength 5/5 to all major flexion & extension muscle groups. (Merrill Godfrey) Lab, Micro, Other Results Recent Impressions Head CT 06/16/17 0600 Signed Impressions: Service Date/Time: Friday, June 16, 2017 08:30 - CONCLUSION: No acute disease. Samson Tavarez MD Cervical Spine X-Ray 06/15/17 0000 Signed Impressions: Service Date/Time: Thursday, June 15, 2017 10:01 - CONCLUSION: Spot fluoroscopic images, as above. Jaydon Cline MD Laboratory Tests Test 06/16/17 08:23 06/16/17 22:15 White Blood Count 7.2 TH/MM3 Red Blood Count 5.21 MIL/MM3 Hemoglobin 13.3 GM/DL Hematocrit 40.8 % Mean Corpuscular Volume 78.4 FL Mean Corpuscular Hemoglobin 25.6 PG Mean Corpuscular Hemoglobin Concent 32.6 % Red Cell Distribution Width 17.7 % Platelet Count 165 TH/MM3 Mean Platelet Volume 8.4 FL Neutrophils (%) (Auto) 77.9 % Lymphocytes (%) (Auto) 9.8 % Monocytes (%) (Auto) 12.0 % Eosinophils (%) (Auto) 0.2 % Basophils (%) (Auto) 0.1 % Neutrophils # (Auto) 5.6 TH/MM3 Lymphocytes # (Auto) 0.7 TH/MM3 Monocytes # (Auto) 0.9 TH/MM3 Eosinophils # (Auto) 0.0 TH/MM3 Basophils # (Auto) 0.0 TH/MM3 CBC Comment DIFF FINAL Differential Comment Blood Urea Nitrogen 12 MG/DL Creatinine 1.14 MG/DL Random Glucose 107 MG/DL Calcium Level 8.5 MG/DL Sodium Level 138 MEQ/L Potassium Level 4.3 MEQ/L Chloride Level 105 MEQ/L Carbon Dioxide Level 26.2 MEQ/L Anion Gap 7 MEQ/L Estimat Glomerular Filtration Rate 63 ML/MIN Urine Color LIGHT-YELLOW Urine Turbidity CLEAR Urine pH 5.5 Urine Specific [place] 1.007 Urine Protein NEG mg/dL Urine Glucose (UA) NEG mg/dL Urine Ketones TRACE mg/dL Urine Occult Blood SMALL Urine Nitrite NEG Urine Bilirubin NEG Urine Urobilinogen LESS THAN 2.0 MG/DL Urine Leukocyte Esterase NEG Urine RBC 9 /hpf Urine WBC 1 /hpf Microscopic Urinalysis Comment CULT NOT INDICATED (Merrill Godfrey) Medical Decision Making Impression and Plan Impression: (1) Cervical spinal stenosis (2) Cervical disc disease with myelopathy 1. Cervical spondylosis and degenerative disc disease 2. Cervical stenosis 3. Cervical myelopathy Patient continues to do well, his pain is better today. Neurologically stable. POD #2 () s/p: 1. C3, C4, C5, C6 laminoplasty, allograft bone, demineralized bone matrix, titanium plates and screws 2. Inferior C2 and superior C7 decompressive semi-laminectomy Plan: Neuro checks. Mobilise patient w/assistance. [place] J cervical collar at all times. PT eval & tx. Monitor ELIJAH drain output. [facility] once insurance approval is obtained. (Merrill Godfrey) Attending Statement The exam, history, and the medical decision-making described in the above note were completed with the assistance of the mid-level provider. I reviewed and agree with the findings presented. I attest that I had a [id number] encounter with the patient on the same day, and personally performed and documented my assessment and findings in the medical record. (Chiki Barker MD) Merrill Godfrey Jun 17, 2017 11:51 Chiki Barker MD Jun 29, 2017 05:19
[2017-06-17] MEDS ORDERED: METH500T3 PO (14:39)
[2017-06-17] MEDS ORDERED: HYDR-3583 PO (14:39)
--- NOTE | 2017-06-17 14:40 | HHI.DCPOC ---
Discharge Care Plan Diagnosis: (1) Cervical spinal stenosis (2) Cervical disc disease with myelopathy (3) Lumbar radiculopathy, acute Your Health Problems Are: Incision/Drains Exercise Tolerance Goals to Promote Your Health * To prevent worsening of your condition and complications * To maintain your health at the optimal level Leave the dressing on over the surgical incisions until . After that you may take the outer dressing off but leave the steri-strips on and let them fall off on their own. No showering until the surgical incision is totally healed. No lifting, bending, pushing, pulling or other strenuous activity. Wear the LSO brace when out of bed. Take the pain medication as prescribed. Avoid taking any medication that contains aspirin or NSAIDs (ibuprofen, naproxen , Motrin, Advil, Naprosyn). Follow up in the office in 2 weeks for a wound check. Directions to Meet Your Goals Take your medications as prescribed Follow your dietary instruction Follow activity as directed Leave the dressing on over the surgical incisions until . After that you may take the outer dressing off but leave the steri-strips on and let them fall off on their own. No showering until the surgical incision is totally healed. No lifting, bending, pushing, pulling or other strenuous activity. Wear the LSO brace when out of bed. Take the pain medication as prescribed. Avoid taking any medication that contains aspirin or NSAIDs (ibuprofen, naproxen , Motrin, Advil, Naprosyn). Follow up in the office in 2 weeks for a wound check. Keep your appointments as scheduled Take your immunizations and boosters as scheduled If your symptoms worsen call your PCP, if no PCP go to Urgent Care Center or Emergency Room Smoking is Dangerous to Your Health. Avoid second hand smoke Call the 24-hour hour crisis hotline for domestic abuse at Merrill Godfrey Jun 17, 2017 14:40 Chiki Barker MD Jun 29, 2017 05:18
--- NOTE | 2017-06-17 14:47 | HHI.DS ---
Merrill Godfrey HAND SCREEN PRINTER 06/17/17 1447: Discharge Summary Admission Date Jun 15, 2017 at 05:40 Discharge Date: Jun 18, 2017 Admitting Diagnosis (1) Cervical disc disease with myelopathy Diagnosis: Principal ICD Code: M50.00 - Cervical disc disorder with myelopathy, unspecified cervical region (2) Cervical spinal stenosis Diagnosis: Secondary ICD Code: M48.02 - Spinal stenosis, cervical region (3) Lumbar radiculopathy, acute Diagnosis: Secondary ICD Code: M54.16 - Radiculopathy, lumbar region Status: Acute Procedures : 1. C3, C4, C5, C6 laminoplasty, allograft bone, demineralized bone matrix, titanium plates and screws 2. Inferior C2 and superior C7 decompressive semi-laminectomy CBC/BMP: 06/16/17 0823 06/16/17 0823 Significant Findings Laboratory Tests Test 06/16/17 08:23 06/16/17 22:15 Mean Corpuscular Volume 78.4 FL (80.0-100.0) Mean Corpuscular Hemoglobin 25.6 PG (27.0-34.0) Red Cell Distribution Width 17.7 % (11.6-17.2) Neutrophils (%) (Auto) 77.9 % (16.0-70.0) Monocytes (%) (Auto) 12.0 % (0.0-8.0) Lymphocytes # (Auto) 0.7 TH/MM3 (1.0-4.8) Random Glucose 107 MG/DL (74-106) Estimat Glomerular Filtration Rate 63 ML/MIN (>89) Urine Ketones TRACE mg/dL (NEG) Urine Occult Blood SMALL (NEG) Urine RBC 9 /hpf (0-3) Hospital Course 06/15: The patient presented to [facility] to undergo a C3 to C6 laminoplasty with a C2 and C7 decompressive laminectomy. Post-operatively the patient was admitted to a regular med/surg floor. 06/16: The patient states that he is not doing so good when seen this afternoon. He complains of pain to the neck and back and across the upper shoulders. He states that he did have some shortness of breath when he got up and ambulate with Physical Therapy. Nursing reported that the patient did have some drainage earlier at the ELIJAH drain insertion site and that they have just reinforced the dressing. His Cedillo catheter has been taken out and he is voiding on his own but he does report pain with urination. The patient did have a CT brain this morning which was unremarkable. 06/17: This morning the patient is awake and visiting with his . He states that he is doing better than yesterday and is pain is less. He also states that his difficulty urinating yesterday has resolved with his being able to stand. Lisa Simental RN, [place] machine molder, met with the patient this morning. She is going to request authorisation for the patient to go to [place] at discharge for further therapy and requested that an Occupational Therapy consult be placed. Pt Condition on Discharge: Good Discharge Disposition: Discharge to SNF Discharge Instructions DIET: Follow Instructions for: As Tolerated, No Restrictions ACTIVITIES You can perform: Weight Bearing As Charu Activities to Avoid: Lifting/Bending, Strenuous Activity, Bathing, Shower ADDITIONAL Activity Instructio: No showering until the surgical incision is totally healed. No lifting, bending, pushing, pulling or other strenuous activity. Wear the LSO brace when out of bed. Additional Information Leave the dressing on over the surgical incisions until . After that you may take the outer dressing off but leave the steri-strips on and let them fall off on their own. No showering until the surgical incision is totally healed. Take the pain medication as prescribed. Avoid taking any medication that contains aspirin or NSAIDs (ibuprofen, naproxen , Motrin, Advil, Naprosyn). Follow up in the office in 2 weeks for a wound check. Chiki Barker MD 06/29/17 0520: Discharge Summary CBC/BMP: 06/16/17 0823 06/16/17822 Attending Statement The exam, history, and the medical decision-making described in the above note were completed with the assistance of the mid-level provider. I reviewed and agree with the findings presented. I attest that I had a [id number] encounter with the patient on the same day, and personally performed and documented my assessment and findings in the medical record. Merrill Godfrey Jun 17, 2017 14:47 Chiki Barker MD Jun 29, 2017 05:20
[2017-06-17] MEDS ORDERED: MULTIVITAMINS/MINERALS THERAPEUTIC TAB PO SCH (21:00)
[2017-06-18] VITALS: BP 137/81; PULSE 62; RESP 20; TEMP 98.4; O2SAT 96
[2017-06-18] MEDS: D5-1/2 NS + KCL 20 MEQ INJ 1,000 ML IV SCH ×2 (01:26→11:17)
[2017-06-18 04:00] VITALS: BP 132/71; PULSE 59; RESP 20; TEMP 99; O2SAT 95
[2017-06-18] MEDS: KETOROLAC TROMETHAMINE 30 MG/ML (IVP) VIAL IV PUSH SCH (06:31)
[2017-06-18 08:00] VITALS: BP 136/75; PULSE 70; RESP 20; TEMP 98.2; O2SAT 96
[2017-06-18 08:35] VITALS: O2SAT 95
[2017-06-18] MEDS: LOSARTAN 50 MG TAB PO SCH (09:16)
[2017-06-18] MEDS: METOPROLOL TARTRATE 50 MG TAB PO SCH (09:16)
[2017-06-18] MEDS: POTASSIUM CHLORIDE 10 MEQ CONTROLLED RELEASE TAB PO SCH (09:16)
[2017-06-18] MEDS: POLYETHYLENE GLYCOL 17 GM PKG PO SCH (09:17)
[2017-06-18] MEDS: SODIUM CHLORIDE 0.9% FLUSH 5 ML FLUSH IVF SCH (09:17)
--- NOTE | 2017-06-18 09:55 | HHI.NSPN ---
History Chief Complaint: Neck pain, but better Interval History 06/15: The patient presented to [facility] to undergo a C3 to C6 laminoplasty with a C2 and C7 decompressive laminectomy. Post-operatively the patient was admitted to a regular med/surg floor. 06/16: The patient states that he is not doing so good when seen this afternoon. He complains of pain to the neck and back and across the upper shoulders. He states that he did have some shortness of breath when he got up and ambulate with Physical Therapy. Nursing reported that the patient did have some drainage earlier at the ELIJAH drain insertion site and that they have just reinforced the dressing. His Cedillo catheter has been taken out and he is voiding on his own but he does report pain with urination. The patient did have a CT brain this morning which was unremarkable. 06/17: This morning the patient is awake and visiting with his . He states that he is doing better than yesterday and is pain is less. He also states that his difficulty urinating yesterday has resolved with his being able to stand. Lisa Simental RN, [place] pullboat engineer, met with the patient this morning. She is going to request authorisation for the patient to go to [place] at discharge for further therapy and requested that an Occupational Therapy consult be placed. 06/18: Pt awake and alert. Incisional discomfort improving. Pt states trying not to take pain medication secondary to constipation side effects. No radiculopathy in UEs. Paresthesias in Toes. Review of Systems General: Negative for: fever, chills, insomnia Respiratory: Negative for: shortness of breath, cough, sputum Cardiovascular: Negative for: chest pain Gastrointestinal: Negative for: nausea, vomitting, diarrhea, constipation Exam Results Vital Signs Date Time Temp Pulse Resp B/P (MAP) Pulse Ox O2 Delivery O2 Flow Rate FiO2 06/18/17 08:00 98.2 70 20 136/75 (95) 96 06/18/17 05:37 Room Air 06/17/17 08:02 21 06/17/17 08:00 2.00 Physical Examination Resp: CTA bilaterally. Heart: NSR no murmurs Abd: Soft positive bs Skin: Incision clean and dry. ELIJAH drain in place. Muscle: Moves all 4 extremities well. Cervical collar in place. Generalized weakness. Neuro: Pt awake and alert. Follows commands well. Speech clear and appropriate. Lab, Micro, Other Results Last Impressions Head CT 06/16/17 0600 Signed Impressions: Service Date/Time: Friday, June 16, 2017 08:30 - CONCLUSION: No acute disease. Samson Tavarez MD Cervical Spine X-Ray 06/15/17 0000 Signed Impressions: Service Date/Time: Thursday, June 15, 2017 10:01 - CONCLUSION: Spot fluoroscopic images, as above. Jaydon Cline MD Medical Decision Making Impression and Plan A: 72 y/o M with (1) Cervical spinal stenosis (2) Cervical disc disease with myelopathy 1. Cervical spondylosis and degenerative disc disease 2. Cervical stenosis 3. Cervical myelopathy POD #3 () s/p: 1. C3, C4, C5, C6 laminoplasty, allograft bone, demineralized bone matrix, titanium plates and screws 2. Inferior C2 and superior C7 decompressive semi-laminectomy Plan: Neuro checks. PT increase mobility [place] J cervical collar at all times. D/C ELIJAH drain. Plan for discharge to [facility] once insurance approval is obtained. Sen Daley Jun 18, 2017 9:55 am
[2017-06-25] MEDS ORDERED: [UNRECOGNIZED DRUG - OTHER] (12:26)
== END 2017-06-18 12:40 | DRG 519 ==
LOC: HSDI 06-15 05:40 → N05A 06-15 15:12
PROVIDERS: ADMIT Neurological Surgery; ATTEND Neurological Surgery
PROC: 0PH304Z Insertion of Internal Fixation Device into Cervical Vertebra, Open Approach (ICD-10-PCS; 2017-06-15)
PROC: 0PU30KZ Supplement Cervical Vertebra with Nonautologous Tissue Substitute, Open Approach (ICD-10-PCS; 2017-06-15)
PROC: 00NW0ZZ Release Cervical Spinal Cord, Open Approach (ICD-10-PCS; principal; 2017-06-15 08:13)
DX: M48.02 Spinal stenosis, cervical region (principal); M47.12 Other spondylosis with myelopathy, cervical region; E11.42 Type 2 diabetes mellitus with diabetic polyneuropathy; D75.1 Secondary polycythemia; M50.01 Cervical disc disorder with myelopathy, high cervical region; I10 Essential (primary) hypertension; E78.5 Hyperlipidemia, unspecified; I25.10 Atherosclerotic heart disease of native coronary artery without angina pectoris; K21.9 Gastro-esophageal reflux disease without esophagitis; M54.16 Radiculopathy, lumbar region; R30.9 Painful micturition, unspecified; Z87.891 Personal history of nicotine dependence; I25.2 Old myocardial infarction
CPT/HCPCS: 70450; 72040; 76000; 80048; 81001; 85025; 94150; C1713; J1100; J1580; J1885; J2370; J2405; J3010; J3480; J7120; L0150; L0172

== ENCOUNTER 2017-09-17 05:38 | Inpatient (IN) | payer OTHER, MEDICARE ==
[~2017-09-17] VITALS: Ht 167.6 cm; Wt 75.0 kg
[~2017-09-17 05:38] MED LIST changes: +ASPI1TAB57 PO; -ASPI81CH CHEW; -ASPI81TA11 PO; +FISH100020 PO; -FISH1200 PO; +K-TA10TA PO; +KLOR10TA PO; +MELO7.5T27 PO; +METH500T3 PO; -METR0.7533 TOPICAL; -MOBI7.5T PO; -MOME0.1O20 TOPICAL; -POTA-243 PO; -PRED20 PO; +SIMV20TA PO; +TYLE325T PO; -ZOCO20TA PO
[2017-09-17] MEDS ORDERED: METOPROLOL TARTRATE 25 MG TAB PO PRN (06:15)
[2017-09-17] MEDS ORDERED: LACTATED RINGER'S 1000 ML IV PRN (06:15)
[2017-09-17] MEDS ORDERED: SODIUM CHLORIDE 0.9% INJ 100 ML ONE ×2 (06:18→06:33)
[2017-09-17] MEDS ORDERED: ACETAMINOPHEN 1000 MG/100 ML 100 ML IV ONE (07:20)
[2017-09-17] MEDS ORDERED: KETAMINE HCL 500 MG/5 ML VIAL ONE (07:21)
[2017-09-17] MEDS ORDERED: THROMBIN (TOPICAL) 5,000 UNIT VIAL ONE (07:21)
[2017-09-17] MEDS ORDERED: GELFOAM SIZE 100 ONE (07:21)
[2017-09-17] MEDS ORDERED: PROPOFOL 500 MG/50 ML INJ 200 ML ONE (07:21)
[2017-09-17] MEDS ORDERED: GENTAMICIN SULFATE 80 MG/2 ML VIAL ONE (07:21)
[2017-09-17] MEDS ORDERED: LIDOCAINE 1%/EPINEPHrine 1:100,000 SOLN 20 ML VIAL ONE (07:22)
[2017-09-17] MEDS ORDERED: BUPIVACAINE HCL PF 0.25% 30 ML VIAL ONE (07:27)
[2017-09-17] MEDS ORDERED: BUPIVACAINE LIPOSOME PF 1.3% 20 ML VIAL ONE (07:29)
[2017-09-17] MEDS ORDERED: CLINDAMYCIN 600 MG/NS 100 ML IV SCH ×2 (07:30)
[2017-09-17] MEDS ORDERED: ONDANSETRON HCL 4 MG/2 ML VIAL IV ONE (12:00)
[2017-09-17] MEDS ORDERED: NORMOSOL R INJ 1,000 ML IV ONE (12:00)
[2017-09-17] MEDS ORDERED: PHENYLEPHRINE HCL 10 MG/ML VIAL IV ONE (12:00)
[2017-09-17] MEDS ORDERED: NEOSTIGMINE 5 MG/5 ML SYRINGE IV PUSH ONE (12:00)
[2017-09-17] MEDS ORDERED: ROCURONIUM INJ 50 MG/5 ML SYRINGE IV PUSH ONE (12:00)
[2017-09-17] MEDS ORDERED: PROPOFOL 200 MG/20 ML AMP IV ONE (12:00)
[2017-09-17] MEDS ORDERED: GLYCOPYRROLATE 1 MG/5 ML SYRINGE IV PUSH ONE (12:00)
[2017-09-17] MEDS ORDERED: ePHEDrine/NS 25 MG/5 ML SYRINGE IV ONE (12:00)
[2017-09-17] MEDS ORDERED: PHENYLEPH/NS 1000 MCG/10 ML SYR IV ONE (12:00)
[2017-09-17] MEDS ORDERED: LIDOCAINE HCL 1% PF 5 ML SYRINGE OTHER ONE (12:00)
[2017-09-17] MEDS ORDERED: BUPIVACAINE LIPOSOME PF 1.3% 20 ML VIAL INFIL ONE (13:45)
[2017-09-17] MEDS ORDERED: DO NOT ADM ANY ANTICOAGULANT DRUGS PRN (14:58)
[2017-09-17] MEDS ORDERED: MORPHINE SULFATE 2 MG/ML INJ IV PUSH PRN (15:00)
[2017-09-17] MEDS ORDERED: NALOXONE HCL 0.4 MG/ML AMP IV PUSH PRN (15:00)
[2017-09-17] MEDS ORDERED: ACETAMINOPHEN/HYDROcodone 325 MG/10 MG TAB PO PRN (15:00)
[2017-09-17] MEDS ORDERED: ACETAMINOPHEN/HYDROcodone 325 MG/5 MG TAB PO PRN (15:00)
[2017-09-17] MEDS ORDERED: ONDANSETRON HCL 4 MG/2 ML VIAL IV PUSH PRN (15:00)
--- NOTE | 2017-09-17 15:10 | PD.OP ---
Operative Report Date of Surgery: Sep 17, 2017 Preoperative Diagnosis: (1) Lumbar canal stenosis (2) Spondylolisthesis of lumbar region (3) Lumbar radiculopathy 1. Grade 1 L4-5 spondylolisthesis 2, Severe L4-5 stenosis 3. Lumbar radiculopathy Postoperative Diagnosis: (1) Lumbar canal stenosis (2) Spondylolisthesis of lumbar region (3) Lumbar radiculopathy 1. Grade 1 L4-5 spondylolisthesis 2, Severe L4-5 stenosis 3. Lumbar radiculopathy Procedure: 1. Bilateral L4-5 decompressive semi-hemilaminectomy, facetectomy, foraminotomy -microtechnique 2. L4 5 discectomy, interbody fusion, PEEK cage, lamina autograft bone, demineralized bone matrix (microtechnique 3. Bilateral L4-5 posterior pedicle screw fixation 4. Bilateral L4-5 posterior lateral fusion, demineralized bone matrix, lamina autograft bone. Anesthesia: General Surgeon: Chiki Barker Oil Producer(s): Staci Green Operation and Findings: Indications: Progressive severe left greater than right L5 radicular and lumbar claudication symptoms, significant difficulty with ambulation. Findings: Severe L4 5 stenosis with severe bilateral ligament hypertrophy. Moderate subannular disc displacement. Procedure in detail The patient was brought to the operating room and general endotracheal anesthesia induced without difficulty Lines were established per Anesthesia Sequential compression devices were in place The patient was positioned prone on the concentric Maxx table with the side bolsters and all extremities appropriately padded Leads for intraoperative neuro monitoring were placed prior to positioning and a baseline study obtained Appropriate timeout procedure was performed with all personnel present and in agreement The lumbar region was shaved with clippers and sterilely prepped and draped 1% Xylocaine with epinephrine was used for local infiltration over the incision site which was made approximately 5.5 cm lateral to the midline at the bilateral L4 5 level and carried sharply down to the fascia. The fascia was sharply incised and finger dissection was used to separate the normal intermuscular plane at the bilateral L4-5 level, allowing direct palpation of the junction of the and pedicle and transverse process on each side. The entry point for the pedicle screws were determined by anatomic and radiographic landmarks. Using AP and lateral C-arm imaging, the Jamshidi needle was guided through the bilateral L4 and L5 pedicle. The intraoperative C-arm imaging was used to verify appropriate Jamshidi needle placement. The wires were then placed through the Jamshidi needle cannulas, and the cannula was withdrawn. The wires were temporarily clipped away from the operative field. On the left side Deleon elevator was used for subperiosteal elevation of paraspinous musculature and fascia away from the lamina and spinous processes The deep self-retaining retractor was placed The appropriate levels were verified with intraoperative C-arm The microscope was moved into place and used for the remainder of the procedure except for the closure The TPS drill with a 5 mm bone bur followed by the Kerrison rongeur was used to remove the inferior two thirds of the lamina at the cephalad level of the decompression and the superior third of the lamina at the caudal level of the decompression. This was performed starting on the left side, and then working across midline towards the right. The foraminotomy was performed on each side with the 2 and 3 mm Kerrison rongeur. On the side of the cage placement, an additional portion of the medial facet was removed to allow sufficient room for placement of the cage without significant retraction of the thecal sac and exiting nerve root. Hypertrophied ligamentum flavum was elevated away from the thecal sac and exiting nerve roots with the thin ligament dissector and resected with a 15 blade knife and Kerrison rongeur. The thecal sac and exiting nerve root were freed up from surrounding adhesions with the microdissectors and gently retracted medially revealing the underlying disc and annulus. There was moderate subannular disc herniation. The annulus was incised with the 11 blade knife and discectomy performed with pituitary biopsy forceps and straight and angled curettes The endplate scrapers were used to decorticate the endplates and any remaining debris was removed with the antibiotic irrigation and suction and pituitary biopsy forceps The appropriate size PEEK cage was packed with retained lamina cancellus autograft and a small amount of demineralized bone matrix A 10 mm lordotic cage was chosen. The cage was placed at the L4-5 level with a good fit of the cage. The placement was checked under the microscope and with intraoperative C-arm and felt to be satisfactory. The thecal sac and nerve roots were probed with the long blunt nerve hook and felt to be well decompressed The cannulated 5.5 mm tap was then used to prepare the pedicle screw sites on each side, with the dilators used to protect the surrounding tissue. The appropriate length Spine Wave Sniper percutaneous cannulated pedicle screw attached to the MIS extenders were placed into the bilateral L4 and L5 pedicle using the existing guidewires which were then removed. Pedicle screw placement was checked with intraoperative C-arm imaging and EMG stimulation of the pedicle screws, and felt to be satisfactory. The percutaneous rods were placed across the pedicle screws on each side. The locking caps were secured with the torque wrench and anti-torque device Compression and alignment were achieved as necessary with the rods and reducers. A good reduction of the spondylolisthesis was obtained. The patient had a pre-existing coronal curvature at the L4 5 level. There was a compensated thoracolumbar coronal curvature. Thus the screws were compressed and final tightened to keep the pre-existing curvature intact. The entire construct was checked with intraoperative C-arm and felt to be satisfactory The region was well irrigated with antibiotic irrigation The posterior lateral structures at the bilateral L4 5 levels were decorticated with the TPS drill The shavings were left in place, to which was added the remaining autograft and allograft bone which was firmly packed in place for the posterior lateral fusion. The 7 mm flat fluted drain was left in place at the operative side and brought out through a incision at the upper lumbar region and secured to the skin with nylon suture and attached to sterile suction bleeding was carefully controlled with the bipolar forceps The closure was performed with 0 Vicryl interrupted for the deep and superficial fascia, with 3-0 Vicryl for the subcutaneous closure and 4-0 Vicryl running subcuticular closure. Dressings sterile Mastisol, Steri-Strips and Primapore was placed The patient was turned into supine position and taken to recovery room in stable condition All counts were correct at the end of the case Estimated blood loss was 150 cc No specimen was sent to pathology Neuro monitoring was stable during the procedure Chiki Barker MD Sep 17, 2017 15:10
[2017-09-17] MEDS ORDERED: D5-1/2 NS + KCL 20 MEQ INJ 1,000 ML ONE (15:22)
[2017-09-17] MEDS ORDERED: *morphine SULFATE 4 MG/ML PERIprocedure ONLY ONE (15:33)
[2017-09-17] MEDS: D5-1/2 NS + KCL 20 MEQ INJ 1,000 ML IV SCH (15:44)
[2017-09-17 15:48] LABS: AUTOMATED NEUTROPHIL # 4.5 TH/MM3 (1.8-7.7); BASOPHIL % 0.5 % (0.0-2.0); EOSINOPHIL # 0.1 TH/MM3 (0-0.4); EOSINOPHIL % 0.9 % (0.0-4.0); HEMATOCRIT 35.7 % (39.0-51.0); HEMOGLOBIN 11.3 GM/DL (13.0-17.0); LYMPH % 12.1 % (9.0-44.0); LYMPHOCYTE # 0.7 TH/MM3 (1.0-4.8); MEAN CELL VOLUME 74.4 FL (80.0-100.0); MEAN CORPUSCULAR HEMOGLOBIN 23.6 PG (27.0-34.0); MEAN CORPUSCULAR HGB CONC 31.7 % (32.0-36.0); MEAN PLATELET VOLUME 8.9 FL (7.0-11.0); MONO % 10.9 % (0.0-8.0); MONOCYTE # 0.6 TH/MM3 (0-0.9); NEUT % 75.6 % (16.0-70.0); PLATELET COUNT 174 TH/MM3 (150-450); RED BLOOD COUNT 4.79 MIL/MM3 (4.50-5.90); RED CELL DISTRIBUTION WIDTH 16.3 % (11.6-17.2); WHITE BLOOD COUNT 5.9 TH/MM3 (4.0-11.0)
[2017-09-17 16:14] LABS: CALCIUM 8.4 MG/DL (8.5-10.1); CREATININE 0.83 MG/DL (0.60-1.30)
[2017-09-17 16:17] VITALS: BP 126/69; PULSE 60; RESP 16; TEMP 96.2; O2SAT 98
--- NOTE | 2017-09-17 16:50 | RADRPT ---
EXAM DATE/TIME: 09/17/2017 09:31 [facility] COMPARISON: No previous studies available for comparison. INDICATIONS : Lumbar L4-5 PLIF. OR. MEDICAL HISTORY : Cardiovascular disease. Hypertension SURGICAL HISTORY : Fusion, cervical. Hernia repair. ENCOUNTER: Initial ACUITY: 1 day PAIN SCORE: Non-responsive. LOCATION: Lumbar FINDINGS: There is pedicle screw and mony fixation across L4-5 with disc spacer present. Drain in soft tissues. No complications identified. CONCLUSION: 1. Fixation lower lumbar spine. Louis Guerrero MD on September 17, 2017 at 16:48 Board Certified Radiologist. This report was verified electronically.
[2017-09-17] MEDS: KETOROLAC TROMETHAMINE 30 MG/ML (IVP) VIAL IV PUSH SCH ×2 (18:33→23:54)
[2017-09-17 20:00] VITALS: BP 146/74; PULSE 62; RESP 18; TEMP 96.3; O2SAT 100
[2017-09-17] MEDS ORDERED: MIDAZOLAM HCL 2 MG/2 ML VIAL ONE (21:30)
[2017-09-17] MEDS: MULTIVITAMINS/MINERALS THERAPEUTIC TAB PO SCH (21:45)
[2017-09-17] MEDS: LOSARTAN 50 MG TAB PO SCH (21:45)
[2017-09-17] MEDS: TAMSULOSIN HCL 0.4 MG CAP PO SCH (21:45)
[2017-09-17] MEDS: METOPROLOL TARTRATE 50 MG TAB PO SCH (21:45)
[2017-09-18] VITALS (9 sets, daily range): BP systolic 99–142; BP diastolic 60–81; PULSE 61–80; RESP 16–20; TEMP 97.6–99.8; O2SAT 96–100
[2017-09-18] MEDS: D5-1/2 NS + KCL 20 MEQ INJ 1,000 ML IV SCH ×2 (01:43→10:53)
[2017-09-18] MEDS: KETOROLAC TROMETHAMINE 30 MG/ML (IVP) VIAL IV PUSH SCH ×4 (05:16→23:37)
[2017-09-18 05:28] LABS: AUTOMATED NEUTROPHIL # 3.8 TH/MM3 (1.8-7.7); BASOPHIL % 0.4 % (0.0-2.0); EOSINOPHIL # 0.1 TH/MM3 (0-0.4); EOSINOPHIL % 1.2 % (0.0-4.0); HEMATOCRIT 34.8 % (39.0-51.0); HEMOGLOBIN 11.2 GM/DL (13.0-17.0); LYMPH % 11.4 % (9.0-44.0); LYMPHOCYTE # 0.6 TH/MM3 (1.0-4.8); MEAN CELL VOLUME 75.1 FL (80.0-100.0); MEAN CORPUSCULAR HEMOGLOBIN 24.1 PG (27.0-34.0); MEAN CORPUSCULAR HGB CONC 32.1 % (32.0-36.0); MEAN PLATELET VOLUME 8.8 FL (7.0-11.0); MONO % 11.2 % (0.0-8.0); MONOCYTE # 0.6 TH/MM3 (0-0.9); NEUT % 75.8 % (16.0-70.0); PLATELET COUNT 129 TH/MM3 (150-450); RED BLOOD COUNT 4.63 MIL/MM3 (4.50-5.90); RED CELL DISTRIBUTION WIDTH 16.7 % (11.6-17.2)
[2017-09-18 05:47] LABS: BICARBONATE 24.8 MEQ/L (21.0-32.0); CALCIUM 7.9 MG/DL (8.5-10.1); CREATININE 0.99 MG/DL (0.60-1.30)
[2017-09-18] MEDS: LOSARTAN 50 MG TAB PO SCH ×2 (08:05→21:32)
[2017-09-18] MEDS: METOPROLOL TARTRATE 50 MG TAB PO SCH ×2 (08:05→21:32)
[2017-09-18] MEDS: POTASSIUM CHLORIDE 10 MEQ CONTROLLED RELEASE TAB PO SCH (08:05)
[2017-09-18] MEDS: POLYETHYLENE GLYCOL 17 GM PKG PO SCH (08:06)
[2017-09-18] MEDS ORDERED: POTASSIUM CHLORIDE 10 MEQ CONTROLLED RELEASE TAB PO SCH (09:00)
--- NOTE | 2017-09-18 17:05 | HHI.NSPN ---
(Merrill Godfrey) History Chief Complaint: Some back pain. (Merrill Godfrey) Interval History 09/17: The patient presented to [facility] to have a bilateral L4-5 decompressive laminectomy and discectomy with posterior fusion and instrumentation. Post-operatively he was admitted to a regular med/surg floor. 09/18: When seen the patient is awake in bed watching TV. He states he is doing good. He does have some back pain and has not noticed any difference in the numbness to the lower extremities. He states that he did get up and walk earlier today and sat up in the chair for about an hour. He denies any pain to the lower extremities. Physical Therapy did evaluate the patient this morning. (Merrill Godfrey) Exam Results 09/16/17 09/16/17 09/17/17 09/17/17 09/18/17 09/18/17 06:00 18:00 06:00 18:00 06:00 18:00 Intake Total 2020 ml 1635 ml Output Total 480 ml 730 ml Balance 1540 ml 905 ml Intake Oral 340 ml IV Total 2020 ml 1295 ml Output Urine Total 300 ml 650 ml Drainage Total 30 ml 80 ml Estimated Blood Loss 150 ml # Bowel Movements 0 Vital Signs Date Time Temp Pulse Resp B/P (MAP) Pulse Ox O2 Delivery O2 Flow Rate FiO2 09/18/17 16:12 97 Nasal Cannula 2.00 09/18/17 08:18 97 09/18/17 08:00 98.9 72 16 123/71 (88) 96 09/18/17 04:00 98.5 64 16 113/71 (85) 98 09/18/17 00:00 97.8 61 18 142/81 (101) 100 09/17/17 20:00 96.3 62 18 146/74 (98) 100 09/17/17 16:17 96.2 60 16 126/69 (88) 98 09/17/17 15:59 98.2 63 16 119/71 (87) 100 Nasal Cannula 2 09/17/17 15:45 58 17 116/63 (80) 100 Nasal Cannula 2 09/17/17 15:30 60 15 101/65 (77) 100 Nasal Cannula 2 09/17/17 15:15 69 17 109/61 (77) 100 Nasal Cannula 2 09/17/17 15:00 63 19 107/61 (76) 100 Nasal Cannula 2 09/17/17 14:58 98.4 63 20 111/59 (76) 100 Nasal Cannula 2 09/17/17 06:51 98.5 56 18 125/76 (92) 97 09/16/17 21:12 Nasal Cannula 2.00 (Merrill Godfrey) Physical Examination GENERAL: Awake & alert, readily interacts, normal affect, no apparent distress. SKIN: Warm, dry & intact except for lower back surgical incisions & ELIJAH drain insertion site, both w/intact dressings w/some shadowing, no erythemac streaking or active drainage noted. RESPIRATORY: CTAB w/o W/R/R, equal excursion, nonlaboured, on NC. CARDIOVASCULAR: S1S2 w/RRR w/o M/G/R. GASTROINTESTINAL: Abdomen soft, nontender, positive bowel sounds. GENITOURINARY: Cedillo catheter to BSD w/clear yellow urine. MUSCULOSKELETAL: SAVAGE w/o difficulty, no evident clubbing or deformity, extremities NTTP. Intact dressings to lower back surgical incisions & ELIJAH drain site. Surgical incision mildly TTP. ELIJAH drain to bulb suction w/serosanguinous drainage. NEUROLOGICAL: AAOx3. Speech clear & appropriate. Follows simple commands. Decreased sensation to both lower extremities. Motor strength 5/5 to all major flexion & extension muscle groups of the lower extremities. (Merrill Godfrey) Lab, Micro, Other Results Recent Impressions Lumbar Spine X-Ray 09/17/17 0000 Signed Impressions: Service Date/Time: August 09:31 - CONCLUSION: 1. Fixation lower lumbar spine. Louis Guerrero MD Laboratory Tests Test 09/17/17 15:10 09/18/17 04:40 09/18/17 04:41 White Blood Count 5.9 TH/MM3 5.0 TH/MM3 Red Blood Count 4.79 MIL/MM3 4.63 MIL/MM3 Hemoglobin 11.3 GM/DL 11.2 GM/DL Hematocrit 35.7 % 34.8 % Mean Corpuscular Volume 74.4 FL 75.1 FL Mean Corpuscular Hemoglobin 23.6 PG 24.1 PG Mean Corpuscular Hemoglobin Concent 31.7 % 32.1 % Red Cell Distribution Width 16.3 % 16.7 % Platelet Count 174 TH/MM3 129 TH/MM3 Mean Platelet Volume 8.9 FL 8.8 FL Neutrophils (%) (Auto) 75.6 % 75.8 % Lymphocytes (%) (Auto) 12.1 % 11.4 % Monocytes (%) (Auto) 10.9 % 11.2 % Eosinophils (%) (Auto) 0.9 % 1.2 % Basophils (%) (Auto) 0.5 % 0.4 % Neutrophils # (Auto) 4.5 TH/MM3 3.8 TH/MM3 Lymphocytes # (Auto) 0.7 TH/MM3 0.6 TH/MM3 Monocytes # (Auto) 0.6 TH/MM3 0.6 TH/MM3 Eosinophils # (Auto) 0.1 TH/MM3 0.1 TH/MM3 Basophils # (Auto) 0.0 TH/MM3 0.0 TH/MM3 CBC Comment DIFF FINAL DIFF FINAL Differential Comment Blood Urea Nitrogen 17 MG/DL 15 MG/DL Creatinine 0.83 MG/DL 0.99 MG/DL Random Glucose 92 MG/DL 89 MG/DL Calcium Level 8.4 MG/DL 7.9 MG/DL Sodium Level 139 MEQ/L 137 MEQ/L Potassium Level 4.0 MEQ/L 4.2 MEQ/L Chloride Level 107 MEQ/L 106 MEQ/L Carbon Dioxide Level 24.0 MEQ/L 24.8 MEQ/L Anion Gap 8 MEQ/L 6 MEQ/L Estimat Glomerular Filtration Rate 91 ML/MIN 75 ML/MIN (Merrill Godfrey) Medical Decision Making Impression and Plan Impression: 1. Grade 1 L4-5 spondylolisthesis 2, Severe L4-5 stenosis 3. Lumbar radiculopathy The patient is doing well, his motor strength is strong but he continues to have numbness to the lower extremities. Reviewed labs for today. Haemoglobin stable. Thrombocytopenia noted. ELIJAH drain output 110 mL since surgery this morning. Physical Therapy recommends inpatient rehab. POD #1 () s/p : 1. Bilateral L4-5 decompressive semi-hemilaminectomy, facetectomy, foraminotomy -microtechnique 2. L4 5 discectomy, interbody fusion, PEEK cage, lamina autograft bone, demineralized bone matrix (microtechnique 3. Bilateral L4-5 posterior pedicle screw fixation 4. Bilateral L4-5 posterior lateral fusion, demineralized bone matrix, lamina autograft bone. Plan: Neuro checks. LSO brace when OOB once fitted. Mobilise patient w/assistance, may be OOB w/o brace until it is fitted. PT eval & tx. Monitor ELIJAH drain output. (Merrill Godfrey) Attending Statement The exam, history, and the medical decision-making described in the above note were completed with the assistance of the mid-level provider. I reviewed and agree with the findings presented. I attest that I had a [id number] encounter with the patient on the same day, and personally performed and documented my assessment and findings in the medical record. Moderate low back pain when out of bed today, approximately 5/10 severity No pain radiation to the lower extremities He is awake and alert Respirations clear, nonlabored. No cough (Chiki Barker MD) Merrill Godfrey Sep 18, 2017 17:05 Chiki Barker MD Sep 18, 2017 20:15
[2017-09-18] MEDS: ACETAMINOPHEN 325 MG TAB PO PRN ×2 (17:22→21:33)
--- NOTE | 2017-09-18 19:57 | RADRPT ---
EXAM DATE/TIME: 09/18/2017 19:27 [facility] COMPARISON: CHEST SINGLE AP, March 17, 2017, 16:33. INDICATIONS : Shortness of breath, lightheaded and dizzy post lumbar surgery. MEDICAL HISTORY : Myocardial infarction. Hypertension SURGICAL HISTORY : Cardiac catheterization. ENCOUNTER: Initial ACUITY: 2 days PAIN SCORE: 0/10 LOCATION: Bilateral chest FINDINGS: A single view of the chest demonstrates the lungs to be symmetrically aerated without evidence of mas s, infiltrate or effusion. Mild scarring remains at the left lung base. The cardiomediastinal contour s are unremarkable. Osseous structures are stable with severe degenerative change again noted in the right glenohumeral joint. There are milder degenerative changes in left glenohumeral joint. There is a catheter projected over the central upper left abdomen. CONCLUSION: No acute disease. Trevon Perdomo MD on September 18, 2017 at 19:53 Board Certified Radiologist. This report was verified electronically.
[2017-09-18 20:17] LABS: TROPONIN I LESS THAN 0.02 NG/ML (0.02-0.05)
[2017-09-18] MEDS: TAMSULOSIN HCL 0.4 MG CAP PO SCH (21:32)
[2017-09-18] MEDS: MULTIVITAMINS/MINERALS THERAPEUTIC TAB PO SCH (21:32)
[2017-09-18] MEDS: METHOCARBAMOL 500 MG TAB PO PRN (23:37)
[2017-09-19] VITALS: BP 121/69; PULSE 62; RESP 20; TEMP 98.3; O2SAT 98
[2017-09-19] MEDS: KETOROLAC TROMETHAMINE 30 MG/ML (IVP) VIAL IV PUSH SCH ×2 (06:13→12:12)
[2017-09-19] MEDS: D5-1/2 NS + KCL 20 MEQ INJ 1,000 ML IV SCH ×2 (06:53)
[2017-09-19 08:00] VITALS: BP 139/73; PULSE 66; RESP 18; TEMP 97.9; O2SAT 96
[2017-09-19] MEDS: LOSARTAN 50 MG TAB PO SCH ×2 (09:12→21:45)
[2017-09-19] MEDS: METOPROLOL TARTRATE 50 MG TAB PO SCH ×2 (09:12→21:45)
[2017-09-19] MEDS: METHOCARBAMOL 500 MG TAB PO PRN ×2 (09:12→17:23)
[2017-09-19] MEDS: POTASSIUM CHLORIDE 10 MEQ CONTROLLED RELEASE TAB PO SCH (09:12)
[2017-09-19] MEDS: POLYETHYLENE GLYCOL 17 GM PKG PO SCH (09:12)
[2017-09-19] MEDS: ACETAMINOPHEN 325 MG TAB PO PRN ×3 (09:15→21:49)
[2017-09-19 12:00] VITALS: BP 120/69; PULSE 60; RESP 18; TEMP 97.5; O2SAT 96
--- NOTE | 2017-09-19 12:57 | HHI.NSPN ---
(Merrill Godfrey) History Chief Complaint: Back is sore. (Merrill Godfrey) Interval History 09/17: The patient presented to [facility] to have a bilateral L4-5 decompressive laminectomy and discectomy with posterior fusion and instrumentation. Post-operatively he was admitted to a regular med/surg floor. 09/18: When seen the patient is awake in bed watching TV. He states he is doing good. He does have some back pain and has not noticed any difference in the numbness to the lower extremities. He states that he did get up and walk earlier today and sat up in the chair for about an hour. He denies any pain to the lower extremities. Physical Therapy did evaluate the patient this morning. 09/19: This afternoon the patient is in the LSO brace sitting in a chair visiting with his family. He states he is doing good and his back is just sore. He does have some numbness to the left upper extremity intermittently but the numbness to the lower extremities persist without any change. He denies any pain to the extremities. (Merrill Godfrey) Exam Results 09/17/17 09/17/17 09/18/17 09/18/17 09/19/17 09/19/17 06:00 18:00 06:00 18:00 06:00 18:00 Intake Total 2020 ml 1635 ml 600 ml 340 ml Output Total 480 ml 730 ml 2000 ml 620 ml 5 ml Balance 1540 ml 905 ml -1400 ml -280 ml -5 ml Intake Oral 340 ml 600 ml 340 ml IV Total 2020 ml 1295 ml Output Urine Total 300 ml 650 ml 2000 ml 600 ml Drainage Total 30 ml 80 ml 20 ml 5 ml Estimated Blood Loss 150 ml # Bowel Movements 0 Vital Signs Date Time Temp Pulse Resp B/P (MAP) Pulse Ox O2 Delivery O2 Flow Rate FiO2 09/19/17 08:00 97.9 66 18 139/73 (95) 96 09/19/17 00:00 98.3 62 20 121/69 (86) 98 09/18/17 20:00 97.6 73 20 99/60 (73) 98 09/18/17 17:12 99.8 80 18 134/71 (92) 97 09/18/17 16:12 97 Nasal Cannula 2.00 09/18/17 16:00 99.8 78 16 134/71 (92) 97 09/18/17 12:00 99.0 69 16 130/73 (92) 100 09/18/17 08:18 97 09/18/17 08:00 98.9 72 16 123/71 (88) 96 09/18/17 04:00 98.5 64 16 113/71 (85) 98 09/18/17 00:00 97.8 61 18 142/81 (101) 100 09/17/17 20:00 96.3 62 18 146/74 (98) 100 09/17/17 16:17 96.2 60 16 126/69 (88) 98 09/17/17 15:59 98.2 63 16 119/71 (87) 100 Nasal Cannula 2 09/17/17 15:45 58 17 116/63 (80) 100 Nasal Cannula 2 09/17/17 15:30 60 15 101/65 (77) 100 Nasal Cannula 2 09/17/17 15:15 69 17 109/61 (77) 100 Nasal Cannula 2 09/17/17 15:00 63 19 107/61 (76) 100 Nasal Cannula 2 09/17/17 14:58 98.4 63 20 111/59 (76) 100 Nasal Cannula 2 09/17/17 06:51 98.5 56 18 125/76 (92) 97 09/16/17 21:12 Nasal Cannula 2.00 (Merrill Godfrey) Physical Examination GENERAL: Awake & alert, sitting up in chair visiting w/family, readily interacts , normal affect, no apparent distress. MUSCULOSKELETAL: SAVAGE w/o difficulty, no evident clubbing or deformity, extremities NTTP. In LSO brace. Intact dressings to lower back surgical incisions & ELIJAH drain site. Surgical incision mildly TTP on left. ELIJAH drain to bulb suction w/serosanguinous drainage. NEUROLOGICAL: AAOx3. Speech clear & appropriate. Follows simple commands. Decreased sensation to both lower extremities but intact to light touch to the upper extremities. Motor strength 5/5 to all major flexion & extension muscle groups of the upper & lower extremities. (Merrill Godfrey) Lab, Micro, Other Results Recent Impressions Chest X-Ray 09/18/17 0000 Signed Impressions: Service Date/Time: Monday, September 18, 2017 19:27 - CONCLUSION: No acute disease. Trevon Perdomo MD Lumbar Spine X-Ray 09/17/17 0000 Signed Impressions: Service Date/Time: August 09:31 - CONCLUSION: 1. Fixation lower lumbar spine. Louis Guerrero MD Laboratory Tests Test 09/17/17 15:10 09/18/17 04:40 09/18/17 04:41 White Blood Count 5.9 TH/MM3 5.0 TH/MM3 Red Blood Count 4.79 MIL/MM3 4.63 MIL/MM3 Hemoglobin 11.3 GM/DL 11.2 GM/DL Hematocrit 35.7 % 34.8 % Mean Corpuscular Volume 74.4 FL 75.1 FL Mean Corpuscular Hemoglobin 23.6 PG 24.1 PG Mean Corpuscular Hemoglobin Concent 31.7 % 32.1 % Red Cell Distribution Width 16.3 % 16.7 % Platelet Count 174 TH/MM3 129 TH/MM3 Mean Platelet Volume 8.9 FL 8.8 FL Neutrophils (%) (Auto) 75.6 % 75.8 % Lymphocytes (%) (Auto) 12.1 % 11.4 % Monocytes (%) (Auto) 10.9 % 11.2 % Eosinophils (%) (Auto) 0.9 % 1.2 % Basophils (%) (Auto) 0.5 % 0.4 % Neutrophils # (Auto) 4.5 TH/MM3 3.8 TH/MM3 Lymphocytes # (Auto) 0.7 TH/MM3 0.6 TH/MM3 Monocytes # (Auto) 0.6 TH/MM3 0.6 TH/MM3 Eosinophils # (Auto) 0.1 TH/MM3 0.1 TH/MM3 Basophils # (Auto) 0.0 TH/MM3 0.0 TH/MM3 CBC Comment DIFF FINAL DIFF FINAL Differential Comment Blood Urea Nitrogen 17 MG/DL 15 MG/DL Creatinine 0.83 MG/DL 0.99 MG/DL Random Glucose 92 MG/DL 89 MG/DL Calcium Level 8.4 MG/DL 7.9 MG/DL Sodium Level 139 MEQ/L 137 MEQ/L Potassium Level 4.0 MEQ/L 4.2 MEQ/L Chloride Level 107 MEQ/L 106 MEQ/L Carbon Dioxide Level 24.0 MEQ/L 24.8 MEQ/L Anion Gap 8 MEQ/L 6 MEQ/L Estimat Glomerular Filtration Rate 91 ML/MIN 75 ML/MIN Total Creatine Kinase 406 U/L Creatine Kinase MB 9.0 NG/ML Creatine Kinase MB % 2.2 % Troponin I LESS THAN 0.02 NG/ML (Merrill Godfrey) Medical Decision Making Impression and Plan Impression: 1. Grade 1 L4-5 spondylolisthesis 2, Severe L4-5 stenosis 3. Lumbar radiculopathy The patient continues to do well, his motor strength is strong to all extremities, the numbness to the lower extremities persists and he has intermittent numbness to the left upper. ELIJAH drain output 25 mL this morning for the past 24 hours. Physical Therapy recommends inpatient rehab. POD #2 () s/p : 1. Bilateral L4-5 decompressive semi-hemilaminectomy, facetectomy, foraminotomy -microtechnique 2. L4 5 discectomy, interbody fusion, PEEK cage, lamina autograft bone, demineralized bone matrix (microtechnique 3. Bilateral L4-5 posterior pedicle screw fixation 4. Bilateral L4-5 posterior lateral fusion, demineralized bone matrix, lamina autograft bone. Plan: Discussed plan of care with patient & family. Discussed plan of care with Case Management who will meet with the patient & family regarding inpatient rehab. Neuro checks. LSO brace when OOB. Mobilise patient w/assistance. PT eval & tx. Monitor ELIJAH drain output. Will order OT eval & tx. Will d/c drain today. (Merrill Godfrey) Attending Statement Keep dressing dry for 7 days postoperative. Then removed outer Primapore dressing and may get Steri-Strips wet in the shower and let them fall off on their own On examination today the patient is in no apparent distress No complaint of chest pain or shortness of breath or palpitations Occasional numbness right lower extremity No lower extremity pain or weakness Awake and alert oriented conversant and appropriate Respirations clear to auscultation Cardiac regular without murmur Abdomen soft, positive bowel sounds No significant extremity edema Sensation intact by touch lower extremities Strength within normal limits major flexion and extension groups right and left lower extremity Labs reviewed Chest x-ray reviewed EKG reviewed Stable postoperatively. Physical therapy notes reviewed He wishes to be discharged to inpatient rehabilitation for short course of rehabilitation before going home. Discontinue drain Discontinue Cedillo (Chiki Barker MD) Merrill Godfrey Sep 19, 2017 12:57 Chiki Barker MD Sep 19, 2017 16:29
[2017-09-19 16:00] VITALS: BP 157/85; PULSE 82; RESP 18; TEMP 98.3; O2SAT 94
[2017-09-19] MEDS ORDERED: HYDR-3583 PO (16:26)
--- NOTE | 2017-09-19 16:27 | HHI.DCPOC ---
Discharge Care Plan Diagnosis: (1) Lumbar radiculopathy (2) Lumbar canal stenosis (3) Spondylolisthesis of lumbar region Your Health Problems Are: Difficulty with ADL Incision/Drains Exercise Tolerance Loss of Movements Chronic Pain Goals to Promote Your Health * To prevent worsening of your condition and complications * To maintain your health at the optimal level Directions to Meet Your Goals Take your medications as prescribed Follow your dietary instruction Follow activity as directed Keep your appointments as scheduled Take your immunizations and boosters as scheduled If your symptoms worsen call your PCP, if no PCP go to Urgent Care Center or Emergency Room Smoking is Dangerous to Your Health. Avoid second hand smoke Call the 24-hour hour crisis hotline for domestic abuse at Chiki Barker MD Sep 19, 2017 16:27
[2017-09-19 20:00] VITALS: BP 135/77; PULSE 64; RESP 18; TEMP 98.6; O2SAT 97
[2017-09-19] MEDS: MULTIVITAMINS/MINERALS THERAPEUTIC TAB PO SCH (21:45)
[2017-09-19] MEDS: TAMSULOSIN HCL 0.4 MG CAP PO SCH (21:45)
[2017-09-20] VITALS: BP 139/76; PULSE 58; RESP 18; TEMP 97.5; O2SAT 96
[2017-09-20] MEDS: METHOCARBAMOL 500 MG TAB PO PRN (01:39)
[2017-09-20] MEDS: ACETAMINOPHEN 325 MG TAB PO PRN ×3 (01:40→13:21)
[2017-09-20] MEDS: LOSARTAN 50 MG TAB PO SCH (07:39)
[2017-09-20] MEDS: POLYETHYLENE GLYCOL 17 GM PKG PO SCH (07:40)
[2017-09-20] MEDS: METOPROLOL TARTRATE 50 MG TAB PO SCH (07:40)
[2017-09-20] MEDS: POTASSIUM CHLORIDE 10 MEQ CONTROLLED RELEASE TAB PO SCH (07:40)
[2017-09-20 08:00] VITALS: BP 152/84; PULSE 68; RESP 18; TEMP 98.2; O2SAT 94
[2017-09-20 12:00] VITALS: BP 144/83; PULSE 63; RESP 18; TEMP 97; O2SAT 99
--- NOTE | 2017-09-20 12:21 | HHI.DS ---
Discharge Summary Admission Date Sep 17, 2017 at 05:38 Discharge Date: Sep 20, 2017 Admitting Diagnosis 1. lumbar stenosis 2. Lumbar neurogenic claudication 3. Lumbar radiculopathy 4. Hypertension 5. Hypercholesterolemia (1) Lumbar radiculopathy Diagnosis: Secondary ICD Code: M54.16 - Radiculopathy, lumbar region (2) Lumbar canal stenosis Diagnosis: Principal ICD Code: M48.061 - Spinal stenosis, lumbar region without neurogenic claudication (3) Spondylolisthesis of lumbar region Diagnosis: Secondary ICD Code: M43.16 - Spondylolisthesis, lumbar region Procedures Date of Surgery: Sep 17, 2017 Preoperative Diagnosis: (1) Lumbar canal stenosis (2) Spondylolisthesis of lumbar region (3) Lumbar radiculopathy 1. Grade 1 L4-5 spondylolisthesis 2, Severe L4-5 stenosis 3. Lumbar radiculopathy Postoperative Diagnosis: (1) Lumbar canal stenosis (2) Spondylolisthesis of lumbar region (3) Lumbar radiculopathy 1. Grade 1 L4-5 spondylolisthesis 2, Severe L4-5 stenosis 3. Lumbar radiculopathy Procedure: 1. Bilateral L4-5 decompressive semi-hemilaminectomy, facetectomy, foraminotomy -microtechnique 2. L4 5 discectomy, interbody fusion, PEEK cage, lamina autograft bone, demineralized bone matrix (microtechnique 3. Bilateral L4-5 posterior pedicle screw fixation 4. Bilateral L4-5 posterior lateral fusion, demineralized bone matrix, lamina autograft bone. CBC/BMP: 09/18/17 0440 09/18/17 0441 Significant Findings Laboratory Tests Test 09/17/17 15:10 09/18/17 04:40 09/18/17 04:41 Hemoglobin 11.3 GM/DL (13.0-17.0) 11.2 GM/DL (13.0-17.0) Hematocrit 35.7 % (39.0-51.0) 34.8 % (39.0-51.0) Mean Corpuscular Volume 74.4 FL (80.0-100.0) 75.1 FL (80.0-100.0) Mean Corpuscular Hemoglobin 23.6 PG (27.0-34.0) 24.1 PG (27.0-34.0) Mean Corpuscular Hemoglobin Concent 31.7 % (32.0-36.0) Neutrophils (%) (Auto) 75.6 % (16.0-70.0) 75.8 % (16.0-70.0) Monocytes (%) (Auto) 10.9 % (0.0-8.0) 11.2 % (0.0-8.0) Lymphocytes # (Auto) 0.7 TH/MM3 (1.0-4.8) 0.6 TH/MM3 (1.0-4.8) Calcium Level 8.4 MG/DL (8.5-10.1) 7.9 MG/DL (8.5-10.1) Platelet Count 129 TH/MM3 (150-450) Estimat Glomerular Filtration Rate 75 ML/MIN (>89) Total Creatine Kinase 406 U/L (39-308) Creatine Kinase MB 9.0 NG/ML (0.5-3.6) Troponin I LESS THAN 0.02 NG/ML PE at Discharge Respirations clear to auscultation Cardiac exam regular without murmur Abdomen soft nontender Lumbar dressings dry and intact Awake and alert and oriented conversant and appropriate Speech clear LS O brace in place Sitting up in bed Sensation intact by touch lower extremities Strength normal range of flexion-extension groups lower extremities Hospital Course Patient admitted for the above noted procedure performed without complication Postoperative course uncomplicated Progressed well in physical therapy Requiring some assistance with ambulation and self-care Inpatient rehabilitation-[facility] living with therapy recommended by physical therapy Pt Condition on Discharge: Good Discharge Disposition: Discharge to SNF Discharge Instructions DIET: Follow Instructions for: As Tolerated, No Restrictions ACTIVITIES You can perform: Weight Bearing As Charu Activities to Avoid: Lifting/Bending, Strenuous Activity ADDITIONAL Activity Instructio: LSO brace when out of bed May sit on the side of the bed with the brace on New Medications: Hydrocodone/Acetaminophen (Hydrocodone-Acetamin 10-325 mg) 10 Mg-325 Mg Tablet 1 TAB PO Q4H PRN for PAIN SCALE 6 TO 10, #60 TAB Continued Medications: Acetaminophen (Tylenol) 325 Mg Tab 650 MG PO Q4H PRN for PAIN SCALE 1 TO 10, TAB [address] (Aspirin 81) 81 Mg Tabdr 81 MG PO DAILY, TAB 0 Refills Losartan (Losartan) 50 Mg Tab 50 MG PO BID for Blood Pressure Management, #30 TAB 0 Refills Methocarbamol (Methocarbamol) 500 Mg Tab 500 MG PO Q8HR PRN for SPASM for 30 Days, TAB Metoprolol Tartrate (Metoprolol Tartrate) 50 Mg Tab 50 MG PO BID, #60 TAB 0 Refills Multiple Vitamins W/ Minerals (Centrum Silver Adult 50+) 1 Tab Tab 1 TAB PO HS Polyethylene Glycol 3350 Powder (Miralax Powder) 17 Gm Powd 17 GM PO DAILY for Constipation, #1 CAN 0 Refills Mix and dissolve one measuring cap-ful (17 grams) in water or juice. Potassium Chloride ER (Klor-Con 10) 10 Meq Tab 10 MEQ PO DAILY for Electrolyte Replacement, #30 TAB 0 Refills Potassium Chloride ER (K-Tab) 10 Meq Tab 1 TAB PO DAILY Simvastatin (Simvastatin) 20 Mg Tab 20 MG PO DAILY Tamsulosin (Tamsulosin) 0.4 Mg Cap 0.4 MG PO HS for Manage Prostate Problems, #30 CAP 0 Refills Discontinued Medications: Meloxicam (Meloxicam) 7.5 Mg Tab 7.5 MG PO DAILY for Arthritis Pain, TAB 0 Refills [place]-3 Fatty Acids (Fish Oil 1000 mg) 300 Mg-1,000 Mg Cap 1 CAP PO DAILY Chiki Barker MD Sep 20, 2017 12:21
--- NOTE | 2017-09-20 12:23 | HHI.NSPN ---
History Chief Complaint: Back is sore. Interval History Moderate low back pain today. Relatively well-controlled with present medications No pain weakness or numbness in the lower extremities Exam Results Vital Signs Date Time Temp Pulse Resp B/P (MAP) Pulse Ox O2 Delivery O2 Flow Rate FiO2 09/20/17 08:00 98.2 68 18 152/84 (106) 94 09/18/17 16:12 Nasal Cannula 2.00 Intake and Output 09/20/17 09/20/17 09/21/17 08:00 16:00 00:00 Intake Total 480 ml Output Total 850 ml Balance -370 ml Physical Examination Respirations clear to auscultation Cardiac exam regular without murmur Abdomen soft nontender Lumbar dressings dry and intact Awake and alert and oriented conversant and appropriate Speech clear LS O brace in place Sitting up in bed Sensation intact by touch lower extremities Strength normal range of flexion-extension groups lower extremities Medical Decision Making Impression and Plan Impression: 1. Stable neurologic exam postoperative Plan: Discussed with the patient and his in the room today He is stable for discharge to assisted facility for inpatient therapy. Continue dressing changes Physical therapy Chiki Barker MD Sep 20, 2017 12:23
--- NOTE | 2017-09-20 13:49 | EKG ---
Date Performed: 09/18/2017 Time Performed: 20:00:24 PTAGE: 72 years EKG: Sinus rhythm POSSIBLE OLD INFERIOR AND ANTERIOR INFARCT Compared to prior tracing no significant change ABNORMAL ECG PREVIOUS TRACING : 01/27/2008 04.56 DOCTOR: Matthew Colvin Interpretating Date/Time 09/20/2017 13:48:35
== END 2017-09-20 16:46 | DRG 455 ==
LOC: HSDI 05:38 → N06B 16:15
PROVIDERS: ADMIT Neurological Surgery; ATTEND Neurological Surgery
PROC: 0SG0071 Fusion of Lumbar Vertebral Joint with Autologous Tissue Substitute, Posterior Approach, Posterior Column, Open Approach (ICD-10-PCS; 2017-09-17)
PROC: 0ST20ZZ Resection of Lumbar Vertebral Disc, Open Approach (ICD-10-PCS; 2017-09-17)
PROC: 0SG00AJ Fusion of Lumbar Vertebral Joint with Interbody Fusion Device, Posterior Approach, Anterior Column, Open Approach (ICD-10-PCS; principal; 2017-09-17 08:28)
DX: M43.16 Spondylolisthesis, lumbar region (principal); D69.6 Thrombocytopenia, unspecified; E11.9 Type 2 diabetes mellitus without complications; I10 Essential (primary) hypertension; F17.210 Nicotine dependence, cigarettes, uncomplicated; M54.16 Radiculopathy, lumbar region; N40.0 Benign prostatic hyperplasia without lower urinary tract symptoms; M48.062 Spinal stenosis, lumbar region with neurogenic claudication; E78.00 Pure hypercholesterolemia, unspecified; G89.29 Other chronic pain; I25.10 Atherosclerotic heart disease of native coronary artery without angina pectoris; I25.2 Old myocardial infarction
CPT/HCPCS: 71010; 72100; 76000; 80048; 82550; 82552; 84484; 85025; 86850; 86900; 86901; 93005; 94150; C1713; C9290; J0131; J1580; J1885; J2250; J2270; J2370; J2405; J2710; J3010; J3480; J7120; L0484